=== PATIENT | female | born 1995 | race Hispanic/Latino ===

== ENCOUNTER 2017-10-09 09:11 | Emergency (ER) | payer OTHER ==
[2017-10-09] MEDS ORDERED: Albuterol Sulfate 2.5 mg/0.5 ml Neb ONE ×2 (09:30)
[2017-10-09] MEDS ORDERED: Dexamethasone 10 MG/ML VIAL ONE (09:43)
--- NOTE | 2017-10-09 10:06 | RAD ---
SINGLE VIEW OF THE CHEST: Comparison: None. History: Cough, lightheadedness. FINDINGS: Single view of the chest shows a normal sized cardiomediastinal silhouette. There is no evidence of c onsolidation, mass, or pleural effusion. The bones are unremarkable. IMPRESSION: No evidence of acute cardiopulmonary disease. POS: [facility]
== END 2017-10-09 11:29 | disposition home or self-care (01) ==
LOC: ERS 09:11
DX: J45.901 Unspecified asthma with (acute) exacerbation (principal); J20.9 Acute bronchitis, unspecified; G43.909 Migraine, unspecified, not intractable, without status migrainosus; M10.9 Gout, unspecified; F17.210 Nicotine dependence, cigarettes, uncomplicated
CPT/HCPCS: 71045; 93005; 94644; 96361; 96374; 96375; J0696; J1100; J7611; J7620

== ENCOUNTER 2018-05-12 13:06 | Emergency (ER) | payer OTHER ==
[2018-05-12] MEDS ORDERED: Ondansetron HCl/PF 4 MG/2 ML Vial ONE (14:33)
[2018-05-12] MEDS ORDERED: Lorazepam 2 MG/ML VIAL ONE (15:10)
== END 2018-05-12 16:26 | disposition home or self-care (01) ==
LOC: ERS 13:06
DX: R11.2 Nausea with vomiting, unspecified (principal); J45.909 Unspecified asthma, uncomplicated; M10.9 Gout, unspecified; G43.909 Migraine, unspecified, not intractable, without status migrainosus; F41.9 Anxiety disorder, unspecified; F32.9 Major depressive disorder, single episode, unspecified; Z87.891 Personal history of nicotine dependence; Z79.899 Other long term (current) drug therapy
CPT/HCPCS: 96374; 96375; J2060; J2405

== ENCOUNTER 2018-11-10 22:09 | Emergency (ER) | payer OTHER, SELFPAY ==
[2018-11-10] MEDS ORDERED: Ketorolac Tromethamine 30 MG/ML VIAL ONE (23:32)
== END 2018-11-11 00:16 | disposition home or self-care (01) ==
LOC: ERS 22:09
DX: L52 Erythema nodosum (principal); M10.9 Gout, unspecified; J45.909 Unspecified asthma, uncomplicated; G43.909 Migraine, unspecified, not intractable, without status migrainosus; F41.9 Anxiety disorder, unspecified; F32.9 Major depressive disorder, single episode, unspecified
CPT/HCPCS: 87804; 96372; J1885

== ENCOUNTER 2018-11-13 17:07 | Inpatient (IN) | payer OTHER, SELFPAY ==
[2018-11-13 18:07] LABS: Hemoglobin 13.5 g/dL (12.0-16.0); Mean Corpuscular HGB CONC 32.5 g/dL (32.0-36.0); Mean Corpuscular Hemoglobin 30.3 pg (27.0-31.0); Mean Corpuscular Volume 93.1 fL (78.0-98.0); Mean Platelet Volume 7.5 fL (7.4-10.4); Platelet Count 291 thou/uL (130-400); RBC Distribution Width 11.6 % (11.5-14.5); Red Blood Cell (RBC) Count 4.45 mill/uL (4.20-5.40); White Blood Cell (WBC) Count 26.2 thou/uL (4.8-10.8)
[2018-11-13 18:24] LABS: ALT (SGPT) 33 U/L (8-55); AST (SGOT) 24 U/L (5-34); Albumin 3.9 g/dL (3.5-5.0); Alkaline Phosphatase 95 U/L (40-150); Anion Gap 13 mmol/L (10-20); BUN (Urea Nitrogen) 10 mg/dL (7.0-18.7); Bilirubin, Total 1.1 mg/dL (0.2-1.2); Calc. Creatinine Clearance 0 mL/min (70-130); Calcium 9.3 mg/dL (7.8-10.44); Carbon Dioxide 23 mmol/L (22-29); Chloride 105 mmol/L (98-107); Estimated GFR-MDRD Greater than 90; Globulin 3.5 g/dL (2.4-3.5); Glucose 104 mg/dL (70-105); Potassium 3.5 mmol/L (3.5-5.1); Protein, Total 7.4 g/dL (6.0-8.3); Sodium 137 mmol/L (136-145)
[2018-11-13 18:26] LABS: Band 10 % (5-11); Lymphocytes 31 % (21-51); MDiff Complete? YES; Monocytes 5 % (0-10); Neutrophil 54 % (42-75); Platelet Morphology Comment Appears Adequate
[2018-11-13] MEDS ORDERED: Ibuprofen 800 MG TAB ONE (19:23)
[2018-11-13] MEDS ORDERED: Morphine 4 MG/ML VIAL ONE ×2 (19:23→21:03)
[2018-11-13] MEDS ORDERED: Piperacillin/Tazobactam 4.5 GM in Sodium Chloride 0.9% 100 ML IVPB ONE (19:45)
--- NOTE | 2018-11-13 20:30 | PDOC.FPRHP ---
- History of Present Illness Chief Complaint: Leg pain History of Present Illness: Ms. Hdz presents to the ED with LLE pain since sunday She reports a small amount of redness (3cm) at that time, she came to the ER because it was very painful and hard to walk. She was DCd with naproxen, returns today with increasing redness and pain. She reports fever at home as high as 102, poor PO intake, and inability to ambulate. She denies trauma, history of DMII, GI upset, syncope, seizure, or headache. She has a history of abscess formation on her skin that has been treated with abx and showering with anti-bacterial soap. ED Course: vanc, zosyn, ibuprofen, morphine, 1L NS CBC, CMP, LA - Allergies/Adverse Reactions Allergies Allergy/AdvReac Type Severity Reaction Status Date / Time acetaminophen [From Tylenol] Allergy Severe Verified 11/13/18 22:54 Hives pork derived (porcine) AdvReac Nausea Verified 11/13/18 22:54 - Home Medications Medication Instructions Recorded Confirmed Type Ibuprofen 400 mg PO TID PRN 09/29/15 11/13/18 History Sertraline HCl 50 mg PO DAILY 11/13/18 11/13/18 History - History PMHx:asthma, PCOS, migraines, depression, anxiety PSHx: tonsillectomy FHx: DMII Social: former smoker, social drinker, marijuana use - Review of Systems General: reports: fever/chills, weight/appetite/sleep changes, fatigue Eyes: denies: eye pain, vision changes ENT: denies: nasal congestion Respiratory: denies: cough, congestion Cardiovascular: denies: chest pain, palpitation Gastrointestinal: denies: nausea, vomiting, diarrhea Genitourinary: denies: incontinence, dysuria Skin: reports: rashes. denies: lesions Musculoskeletal: reports: pain, tenderness. denies: stiffness, swelling Neurological: denies: numbness, syncope, seizure, weakness - Vital signs BP: 151/91 HR: 102 RR: 20 Tmax: 101 Pox: 99% on RA Wt: 158kg - Physical Exam Constitutional: NAD, awake, alert and oriented HEENT: grossly normal vision, grossly normal hearing, MMM Neck: supple, trachea midline Chest: no-tender to palpation Heart: RRR, normal S1/S2, no murmurs/rubs/gallops, pulses present, no edema Lungs: CTAB, no respiratory distress Abdomen: soft, non-tender Musculoskeletal: normal structure, normal tone, ROM grossly normal Neurological: no focal deficit Skin: other (pre tibial erythematous area, indurated, no crepitus) Heme/Lymphatic: no unusual bruising or bleeding Psychiatric: normal mood and affect FMR H&P: Results - Labs Result Diagrams: 11/13/18 17:48 11/13/18 17:48 Lab results: WBC 26.2 thou/uL (4.8-10.8) H 11/13/18 17:48 Hgb 13.5 g/dL (12.0-16.0) 11/13/18 17:48 Hct 41.4 % (36.0-47.0) 11/13/18 17:48 MCV 93.1 fL (78.0-98.0) 11/13/18 17:48 Plt Count 291 thou/uL (130-400) 11/13/18 17:48 Band Neuts % (Manual) 10 % (5-11) 11/13/18 17:48 Sodium 137 mmol/L (136-145) 11/13/18 17:48 Potassium 3.5 mmol/L (3.5-5.1) 11/13/18 17:48 Chloride 105 mmol/L (98-107) 11/13/18 17:48 Carbon Dioxide 23 mmol/L (22-29) 11/13/18 17:48 BUN 10 mg/dL (7.0-18.7) 11/13/18 17:48 Creatinine 0.68 mg/dL (0.6-1.1) 11/13/18 17:48 Glucose 104 mg/dL (70-105) 11/13/18 17:48 Lactic Acid 1.0 mmol/L (0.5-2.2) 11/13/18 17:48 Calcium 9.3 mg/dL (7.8-10.44) 11/13/18 17:48 Total Bilirubin 1.1 mg/dL (0.2-1.2) 11/13/18 17:48 AST 24 U/L (5-34) 11/13/18 17:48 ALT 33 U/L (8-55) 11/13/18 17:48 Alkaline Phosphatase 95 U/L (40-150) 11/13/18 17:48 Serum Total Protein 7.4 g/dL (6.0-8.3) 11/13/18 17:48 Albumin 3.9 g/dL (3.5-5.0) 11/13/18 17:48 FMR H&P: A/P - Problem List (1) Sepsis Current Visit: Yes Status: Acute Code(s): A41.9 - SEPSIS, UNSPECIFIED ORGANISM (2) Cellulitis Current Visit: Yes Status: Acute Code(s): L03.90 - CELLULITIS, UNSPECIFIED (3) Leukocytosis Current Visit: Yes Status: Acute Code(s): D72.829 - ELEVATED WHITE BLOOD CELL COUNT, UNSPECIFIED - Plan sepsis 2/2 cellulitis - elevated WBC, febrile, tachycardic, known source - 1L given in ED, additional now, continue vanc, DC zosyn - tramadol prn for pain, morphine for breakthrough - BCx pending - vitals q4hr leukocytosis - see above Migraines - aware, has not had in a while asthma - no recent exacerbations, monitor Depression/anxiety - continue sertraline, hydroxizine prn code: full ppx: lovenox dispo: admit to medical for IV abx and fluid, transition to PO FMR H&P: Upper Level - Pertinent history 23F seen for 3 day of left leg pain. Issue started with a 3 cm diameter rash. She was seen at ER and discharged with naproxen. The rash continued to increase in size. It is associated with pain, home measured temp of 102F, and nausea. She specifically denies trauma. She endorse history of skin abscesses and shaving her leg. In ER, she has received 2 g vanc, 8 mg morphine, 4.5 g zosyn, 800 mg ibuprofen, 1L NS. WBC was found to be elevated at 26, band of 10%. - Pertinent findings Vitals, BP 140/74, Pulse 94, Resp 20, Temp 98.6 (101.1 Tmax), 98% on RA Gen: Alert, oriented HEENT: Normocephalic, vision/hearing grossly intact, moist mucosal membrane CV: RRR without m/g/r Resp: CTA bilat GI: Soft abd, normoactive Ext: Left leg, anterior surface, irregular rash, with no clear demarcation, measuring over 15 x 15 cm in diameter. Area of wound was marked during exam to establish border. - Plan Date/Time: 11/13/182027 1. Sepsis 2/2 Nonpurulent Cellulitis - Will continue IV vanc for now. DC zosyn. Patient pressure been appropriate and tolerating PO so no further fluid - Blood culture pending. - Transition to PO abx tomorrow 2. Depression - Chronic issue. Continue home sertraline. I, [Clif Hugo], have evaluated this patient and agree with findings/plan as outlined by hospital intern resident. Pertinent changes/additions are listed here. Addendum - Attending - Attending Attestation Date/Time: 11/14/18 0151 I personally evaluated the patient and discussed the management with and team on 11/13. I agree with the History, Examination, Assessment and Plan documented above with any addition or exceptions noted below. BCx and antibiotics.
[2018-11-13] MEDS ORDERED: Ondansetron PF 4 MG/2 ML Vial IVP PRN (22:28)
[2018-11-13] MEDS ORDERED: Morphine 4 MG/ML VIAL SLOW IVP PRN (22:28)
[2018-11-13] MEDS ORDERED: Sodium Chloride 0.9% 1,000 ML IV SCH (22:28)
[2018-11-13 22:56] VITALS: BMI 56.8
[2018-11-13] MEDS: hydrOXYzine 25 MG TAB PO SCH (23:54)
[2018-11-13] MEDS: traMADol HCl 50 MG TAB PO PRN (23:55)
[2018-11-14] MEDS ORDERED: Ibuprofen 200 MG TAB PO PRN (01:01)
[2018-11-14] MEDS ORDERED: Piperacillin/Tazobactam 4.5 GM in Sodium Chloride 0.9% 100 ML IVPB SCH (02:00)
[2018-11-14] MEDS: Vancomycin HCl 1.5 GM in Sodium Chloride 0.9% 250 ML 300 ML IVPB SCH ×2 (05:14→13:51)
[2018-11-14] MEDS: hydrOXYzine 25 MG TAB PO SCH ×4 (05:14→23:26)
[2018-11-14] MEDS: traMADol HCl 50 MG TAB PO PRN ×4 (08:15→21:29)
[2018-11-14 08:24] LABS: #Eosinphils 0.3 thou/uL (0.0-0.7); #Lymphocytes 3.6 thou/uL (1.20-3.40); #Monocytes 1.3 thou/uL (0.11-0.59); #Neutrophils 16.1 thou/uL (1.40-6.50); %Basophils 0.1 % (0.0-1.0); %Eosinophils 1.4 % (0.0-10.0); %Lymphocytes 16.9 % (21.0-51.0); %Monocytes 5.9 % (0.0-10.0); %Neutrophils 75.6 % (42.0-75.0); Hemoglobin 12.7 g/dL (12.0-16.0); Mean Corpuscular HGB CONC 32.9 g/dL (32.0-36.0); Mean Corpuscular Hemoglobin 30.3 pg (27.0-31.0); Mean Corpuscular Volume 92.3 fL (78.0-98.0); Mean Platelet Volume 7.4 fL (7.4-10.4); Platelet Count 284 thou/uL (130-400); RBC Distribution Width 11.6 % (11.5-14.5); Red Blood Cell (RBC) Count 4.17 mill/uL (4.20-5.40); White Blood Cell (WBC) Count 21.3 thou/uL (4.8-10.8)
[2018-11-14 08:44] LABS: ALT (SGPT) 27 U/L (8-55); AST (SGOT) 17 U/L (5-34); Albumin 3.6 g/dL (3.5-5.0); Alkaline Phosphatase 89 U/L (40-150); Anion Gap 11 mmol/L (10-20); BUN (Urea Nitrogen) 10 mg/dL (7.0-18.7); Bilirubin, Total 0.9 mg/dL (0.2-1.2); Calc. Creatinine Clearance 329 mL/min (70-130); Calcium 8.7 mg/dL (7.8-10.44); Carbon Dioxide 26 mmol/L (22-29); Chloride 107 mmol/L (98-107); Estimated GFR-MDRD Greater than 90; Globulin 3.4 g/dL (2.4-3.5); Glucose 110 mg/dL (70-105); Potassium 3.6 mmol/L (3.5-5.1); Sodium 140 mmol/L (136-145)
--- NOTE | 2018-11-14 09:19 | PDOC.FM ---
- Subjective Subjective: Pt reports continued subjective fevers, no chills. continued pain in LLE. no cp/sob, no nausea/vomiting - Objective MAR Reviewed: Yes Vital Signs & Weight: Vital Signs (12 hours) Temp Pulse Resp BP Pulse Ox 11/14/18 07:19 98.1 F 99 16 133/76 99 11/14/18 05:18 98.0 F 92 20 143/75 H 95 11/13/18 22:55 98.8 F 88 20 142/74 H 95 Weight Weight 154.873 kg Result Diagrams: 11/14/18 08:10 11/14/18 08:10 Phys Exam - Physical Examination Constitutional: NAD HEENT: moist MMs, sclera anicteric Neck: no JVD, supple Respiratory: no wheezing, clear to auscultation bilateral Cardiovascular: RRR, no significant murmur Gastrointestinal: soft, non-tender Musculoskeletal: no edema, pulses present Neurological: normal sensation, moves all 4 limbs Lymphatic: no nodes Psychiatric: normal affect Skin: no rash Deviation from normal: LLE: erythema retreating and warm to touch (area marked) , moderat TTP Dx/Plan (1) Sepsis Code(s): A41.9 - SEPSIS, UNSPECIFIED ORGANISM Status: Acute (2) Cellulitis Code(s): L03.90 - CELLULITIS, UNSPECIFIED Status: Acute (3) Leukocytosis Code(s): D72.829 - ELEVATED WHITE BLOOD CELL COUNT, UNSPECIFIED Status: Acute - Plan Plan: sepsis 2/2 LLE cellulitis A- elevated WBC, febrile, tachycardic, known source. 1L given in ED on vanc, has received one dose of zosyn P- will switch to PO ABX - tramadol prn for pain, morphine for breakthrough - BCx pending - vitals q4hr leukocytosis - see above Migraines - aware, has not had in a while asthma - no recent exacerbations, monitor Depression/anxiety - continue sertraline, hydroxizine prn code: full ppx: lovenox Addendum - Attending - Attending Attestation Date/Time: 11/14/18 3911 I personally evaluated the patient and discussed the management with Dr. Dickinson. I agree with the History, Examination, Assessment and Plan documented above with any addition or exceptions noted below. Patient here for cellulitis and sepsis that appears to be resolving. She continues to have erythema without induration. Will continue Vanc and await blood cx. Encourage ambulation. Anticipate 2-3 days hospitalization pending clinical course.
[2018-11-14] MEDS: Ondansetron ODT 4 MG TAB PO PRN ×2 (09:39→14:03)
--- NOTE | 2018-11-14 14:10 | PDOC.EVN ---
Event Note - Event Note Event Note: Pt evaluated this afternoon after reports that her erythema has spread. Erythema has expanded roughly 2-4cm beyond borders in some places, and she now has pain on the posterior aspect of her LLE. Patient reports no change in character/intensity of pain since admission. She is able to wiggle her toes without pain. Her pedal pulses are full bilaterally. She continues to be afebrile. S/p two doses of vancomycin at this time. This infection has been present since 11/10 when she was evaluated in the ED. Given the protracted time course, we have a low suspicion for nec fasc currently. We will continue to monitor spreading of erythema and repeat serial examination to assess for compartment syndrome. We will also expand her antibiotic coverage with Zosyn.
[2018-11-14] MEDS: Piperacillin/Tazobactam 3.375 GM in Sodium Chloride 0.9% 100 ML IVPB SCH ×2 (15:37→21:22)
[2018-11-14 21:37] LABS: Vancomycin, Trough 10.6 ug/mL
[2018-11-14] MEDS ORDERED: Vancomycin HCl 1.75 GM in Sodium Chloride 0.9% 500 ML IVPB SCH (22:45)
[2018-11-15] MEDS: Piperacillin/Tazobactam 3.375 GM in Sodium Chloride 0.9% 100 ML IVPB SCH ×4 (02:55→20:33)
[2018-11-15] MEDS: traMADol HCl 50 MG TAB PO PRN (04:07)
[2018-11-15] MEDS: Ondansetron ODT 4 MG TAB PO PRN (04:09)
[2018-11-15] MEDS: hydrOXYzine 25 MG TAB PO SCH ×3 (06:09→17:00)
[2018-11-15] MEDS: Vancomycin HCl 1.75 GM in Sodium Chloride 0.9% 500 ML IVPB SCH ×3 (06:10→21:57)
[2018-11-15 06:36] LABS: #Eosinphils 0.6 thou/uL (0.0-0.7); #Lymphocytes 3.3 thou/uL (1.20-3.40); %Basophils 0.2 % (0.0-1.0); %Eosinophils 3.6 % (0.0-10.0); %Lymphocytes 19.6 % (21.0-51.0); %Monocytes 5.6 % (0.0-10.0); Hemoglobin 11.9 g/dL (12.0-16.0); Mean Corpuscular HGB CONC 33.2 g/dL (32.0-36.0); Mean Corpuscular Hemoglobin 31.1 pg (27.0-31.0); Mean Corpuscular Volume 93.5 fL (78.0-98.0); Mean Platelet Volume 7.5 fL (7.4-10.4); Platelet Count 268 thou/uL (130-400); RBC Distribution Width 11.4 % (11.5-14.5); Red Blood Cell (RBC) Count 3.85 mill/uL (4.20-5.40)
--- NOTE | 2018-11-15 08:47 | PDOC.FM ---
- Subjective Subjective: Pt has no changes subjectively from yesterday. Continued subjective fevers, continued LLE pain. Pt feels the redness has spread. no cp/palpitations, no nausea/vomiting - Objective MAR Reviewed: Yes Vital Signs & Weight: Vital Signs (12 hours) Temp Pulse Resp BP Pulse Ox 11/15/18 07:26 98.1 F 91 18 147/76 H 97 11/15/18 05:00 98.5 F 89 18 138/77 99 11/15/18 04:00 98.1 F 11/15/18 01:24 97.9 F 11/14/18 23:35 97.9 F Weight Weight 154.873 kg Result Diagrams: 11/15/18 06:06 11/14/18 08:10 Phys Exam - Physical Examination Constitutional: NAD HEENT: moist MMs, sclera anicteric Neck: no nodes, supple Respiratory: no wheezing, clear to auscultation bilateral Cardiovascular: RRR, no significant murmur Gastrointestinal: soft, non-tender Musculoskeletal: pulses present LLE edema, non pitting Neurological: non-focal, normal sensation Lymphatic: no nodes Psychiatric: normal affect, A&O x 3 Deviation from normal: LLE: erythema and TTP which has spread 2cm past previous marked border Dx/Plan (1) Sepsis Code(s): A41.9 - SEPSIS, UNSPECIFIED ORGANISM Status: Acute (2) Cellulitis Code(s): L03.90 - CELLULITIS, UNSPECIFIED Status: Acute (3) Leukocytosis Code(s): D72.829 - ELEVATED WHITE BLOOD CELL COUNT, UNSPECIFIED Status: Acute - Plan Plan: sepsis 2/2 LLE cellulitis vs. LLE anterior compartment syndrome A- WBC trending down but erythema is spreading despite several doses of vanc and zosyn. Necrotizing fasciitis unlikely as of now as pt has such al long course of symptoms though she does have some pain with mvmt of toes and foot dorsiflexion. P- Continue Vanc/Zosyn - will consider gen surg consult for possible nec fasc vs. compartment syndrome - CRP - will add norco for pain - BCx pending - vitals q4hr leukocytosis - see above Migraines - aware, has not had in a while asthma - no recent exacerbations, monitor Depression/anxiety - continue sertraline, hydroxizine prn code: full ppx: lovenox Addendum - Attending - Attending Attestation Date/Time: 11/15/18 1037 I personally evaluated the patient and discussed the management with Dr. Dickinson. I agree with the History, Examination, Assessment and Plan documented above with any addition or exceptions noted below. Patient here with sepsis 2/2 LLE cellulitis. She has been afebrile and cultures negative so far. Continue fluids and abx and await final cx. Her areas of erythema have extended somewhat on the LLE and pain continues to be the same. Will change pain control to Dierks. Expand abx to include Clinda for staph/strep toxin binding. Will obtain CT/MRI of the LLE to see if there is developing fluid collection or abscess or other complication leading to slowed improvement. Further mgmt per those results.
[2018-11-15] MEDS ORDERED: Morphine 4 MG/ML VIAL SLOW IVP PRN ×2 (08:55→14:34)
[2018-11-15] MEDS: Ibuprofen 200 MG TAB PO SCH ×3 (10:51→20:34)
[2018-11-15] MEDS: Clindamycin/D5W 600 MG in Premix Bag 1 BAG IVPB SCH ×2 (13:33→21:26)
[2018-11-15] MEDS ORDERED: ISOVUE-370 76%-LOCM 1 ML ONE (13:39)
--- NOTE | 2018-11-15 13:39 | CT ---
CT OF THE LEFT LOWER EXTREMITY WITH CONTRAST: INDICATION: Concern for possible soft tissue abscess or necrotizing fasciitis with ____ cellulitis. COMPARISON: None. FINDINGS: There is reticulation and soft tissue swelling over the left lower leg, ankle, and dorsal foot. No d rainable fluid collection is evident. No definite acute osseous abnormality is noted. There are sma ll suspected phleboliths within the anterior soft tissues of the proximal to mid left foreleg. The intrinsic musculature of the left lower leg appear within normal limits. IMPRESSION: Prominent cellulitis of the left foreleg, ankle, and foot without evidence of a drainable fluid colle ction. POS: [facility]
[2018-11-15] MEDS ORDERED: Morphine 2 MG/ML SYRINGE SLOW IVP PRN (14:33)
[2018-11-15] MEDS: Morphine 4 MG/ML VIAL SLOW IVP PRN (20:35)
[2018-11-15 21:36] LABS: Vancomycin, Trough 16.2 ug/mL
[2018-11-16] MEDS: Vancomycin HCl 1.5 GM in Sodium Chloride 0.9% 250 ML 300 ML IVPB SCH (00:11)
[2018-11-16] MEDS: hydrOXYzine 25 MG TAB PO SCH ×5 (00:30→20:21)
[2018-11-16] MEDS: Morphine 4 MG/ML VIAL SLOW IVP PRN ×4 (00:33→20:17)
[2018-11-16] MEDS: Piperacillin/Tazobactam 3.375 GM in Sodium Chloride 0.9% 100 ML IVPB SCH ×2 (02:39→07:58)
[2018-11-16] MEDS: Clindamycin/D5W 600 MG in Premix Bag 1 BAG IVPB SCH ×3 (05:05→21:30)
[2018-11-16] MEDS: Vancomycin HCl 1.75 GM in Sodium Chloride 0.9% 500 ML IVPB SCH ×2 (05:05→22:07)
--- NOTE | 2018-11-16 07:57 | PDOC.FM ---
- Subjective Subjective: pt feeling well, continued subjective fevers, no chills, continued LLE pain and erythema. no nausea/vomiting, no sob/cough - Objective MAR Reviewed: Yes Vital Signs & Weight: Vital Signs (12 hours) Temp Pulse Resp BP BP Pulse Ox 11/16/18 07:50 97.7 F 76 16 115/75 98 11/16/18 05:00 98.5 F 76 20 158/74 H 11/15/18 21:00 99.0 F 74 20 154/82 H 98 Weight Weight 154.873 kg Result Diagrams: 11/16/18 07:14 11/14/18 08:10 Phys Exam - Physical Examination Constitutional: NAD HEENT: moist MMs, sclera anicteric Neck: no JVD, supple Respiratory: no wheezing, clear to auscultation bilateral Cardiovascular: RRR, no significant murmur Gastrointestinal: soft, non-tender Musculoskeletal: pulses present LLE edema Neurological: non-focal, normal sensation Lymphatic: no nodes Psychiatric: normal affect, A&O x 3 Skin: normal turgor Deviation from normal: improved: LLE edema/erythema with reduced margins. TTP Dx/Plan (1) Sepsis Code(s): A41.9 - SEPSIS, UNSPECIFIED ORGANISM Status: Acute (2) Cellulitis Code(s): L03.90 - CELLULITIS, UNSPECIFIED Status: Acute (3) Leukocytosis Code(s): D72.829 - ELEVATED WHITE BLOOD CELL COUNT, UNSPECIFIED Status: Acute - Plan Plan: sepsis 2/2 LLE cellulitis A- erythema was spreading despite several doses of vanc and zosyn, added clindamycin yesterday and margins are now retreating Necrotizing fasciitis unlikely as of now as pt has such al long course of symptoms though she does have some pain with mvmt of toes and foot dorsiflexion. BCx no growth 48hrs P- Continue Vanc/Zosyn/clinda - morphine pain controll - vitals q4hr leukocytosis - see above Migraines - aware, has not had in a while asthma - no recent exacerbations, monitor Depression/anxiety - continue sertraline, hydroxizine prn code: full ppx: lovenox Addendum - Attending - Attending Attestation Date/Time: 11/16/18 1230 I personally evaluated the patient and discussed the management with Dr. Dickinson I agree with the History, Examination, Assessment and Plan documented above with any addition or exceptions noted below. LLE cellulitis- improving with addition of clindamycin. Will d/c zosyn and vanc and serially examine leg. Expect 1-2 more days of IV abx. Work on pain control.
[2018-11-16] MEDS: Ibuprofen 200 MG TAB PO SCH ×3 (07:59→20:16)
[2018-11-16 08:08] LABS: #Eosinphils 0.6 thou/uL (0.0-0.7); #Lymphocytes 2.9 thou/uL (1.20-3.40); #Monocytes 0.8 thou/uL (0.11-0.59); #Neutrophils 9.4 thou/uL (1.40-6.50); %Basophils 0.4 % (0.0-1.0); %Eosinophils 4.6 % (0.0-10.0); %Monocytes 5.8 % (0.0-10.0); %Neutrophils 68.3 % (42.0-75.0); Hemoglobin 11.7 g/dL (12.0-16.0); Mean Corpuscular HGB CONC 33.9 g/dL (32.0-36.0); Mean Corpuscular Hemoglobin 31.1 pg (27.0-31.0); Mean Corpuscular Volume 91.7 fL (78.0-98.0); Mean Platelet Volume 7.7 fL (7.4-10.4); Platelet Count 296 thou/uL (130-400); RBC Distribution Width 11.4 % (11.5-14.5); Red Blood Cell (RBC) Count 3.77 mill/uL (4.20-5.40); White Blood Cell (WBC) Count 13.7 thou/uL (4.8-10.8)
[2018-11-16] MEDS ORDERED: Morphine 2 MG/ML SYRINGE SLOW IVP PRN ×2 (10:37→19:50)
[2018-11-16] MEDS ORDERED: Morphine 4 MG/ML VIAL SLOW IVP PRN (10:37)
[2018-11-16] MEDS ORDERED: Enoxaparin Sodium 40 MG/0.4 ML SYRINGE SC SCH (10:45)
[2018-11-16] MEDS: traMADol HCl 50 MG TAB PO PRN (13:57)
[2018-11-16] MEDS ORDERED: Piperacillin/Tazobactam 3.375 GM in Sodium Chloride 0.9% 100 ML IVPB SCH ×2 (22:00→23:59)
[2018-11-17] MEDS: Morphine 4 MG/ML VIAL SLOW IVP PRN ×6 (00:08→21:33)
[2018-11-17] MEDS: hydrOXYzine 25 MG TAB PO SCH ×4 (01:00→13:35)
[2018-11-17] MEDS: Clindamycin/D5W 600 MG in Premix Bag 1 BAG IVPB SCH ×3 (05:33→21:25)
[2018-11-17] MEDS: Vancomycin HCl 1.75 GM in Sodium Chloride 0.9% 500 ML IVPB SCH ×2 (05:33→11:42)
--- NOTE | 2018-11-17 06:49 | PDOC.FM ---
- Subjective Subjective: Pt complains of continued subjective fevers/chills and LLE pain. Reports ok rest. no other complaints at this time. - Objective MAR Reviewed: Yes Vital Signs & Weight: Vital Signs (12 hours) Temp Pulse Resp BP Pulse Ox 11/17/18 05:00 97.9 F 76 18 122/76 97 11/16/18 21:00 98.2 F 84 18 185/88 H 98 Weight Weight 154.873 kg Result Diagrams: 11/16/18 07:14 11/14/18 08:10 Phys Exam - Physical Examination Constitutional: NAD HEENT: moist MMs, sclera anicteric Neck: no JVD, supple Respiratory: no wheezing, clear to auscultation bilateral Cardiovascular: RRR, no significant murmur Gastrointestinal: soft, non-tender Musculoskeletal: pulses present LLE edema Neurological: normal sensation, moves all 4 limbs Lymphatic: no nodes Psychiatric: normal affect, A&O x 3 Skin: normal turgor Deviation from normal: LLE: advanced erythema past the margins, TTP Dx/Plan (1) Sepsis Code(s): A41.9 - SEPSIS, UNSPECIFIED ORGANISM Status: Acute (2) Cellulitis Code(s): L03.90 - CELLULITIS, UNSPECIFIED Status: Acute (3) Leukocytosis Code(s): D72.829 - ELEVATED WHITE BLOOD CELL COUNT, UNSPECIFIED Status: Acute - Plan Plan: sepsis 2/2 LLE cellulitis A- Erythema retreated with addition of clinda but yesterday erythema advanced after DCing vanc and zosyn. Necrotizing fasciitis unlikely as of now as pt has such al long course of symptoms though she does have some pain with mvmt of toes and foot dorsiflexion. BCx no growth 48hrs P- Continue Vanc/Zosyn/clinda for now. Will discuss plan going forward at rounds. - morphine pain control - vitals q4hr leukocytosis - see above Migraines - aware, has not had in a while asthma - no recent exacerbations, monitor Depression/anxiety - continue sertraline, hydroxizine prn code: full ppx: lovenox Addendum - Attending - Attending Attestation Date/Time: 11/17/18 1050 I personally evaluated the patient and discussed the management with Dr. Dickinson I agree with the History, Examination, Assessment and Plan documented above with any addition or exceptions noted below. This am wound appears similar to yesterday, but did progress past borders overnight so vanc/zosyn restarted. Today will continue vanc/zosyn/clinda. Attempt wean tomorrow if continued improvement.
[2018-11-17] MEDS: Lactinex Tablet PO SCH (08:16)
[2018-11-17] MEDS: Enoxaparin Sodium 40 MG/0.4 ML SYRINGE SC SCH (08:16)
[2018-11-17] MEDS: Piperacillin/Tazobactam 3.375 GM in Sodium Chloride 0.9% 100 ML IVPB SCH ×3 (08:16→20:13)
[2018-11-17] MEDS: Ibuprofen 200 MG TAB PO SCH ×3 (08:16→21:31)
[2018-11-17] MEDS: traMADol HCl 50 MG TAB PO PRN (20:11)
[2018-11-17 21:37] LABS: Vancomycin, Trough 23.8 ug/mL
[2018-11-18] MEDS: hydrOXYzine 25 MG TAB PO SCH ×4 (00:06→17:49)
[2018-11-18] MEDS: Piperacillin/Tazobactam 3.375 GM in Sodium Chloride 0.9% 100 ML IVPB SCH ×4 (01:58→20:10)
[2018-11-18] MEDS: Morphine 4 MG/ML VIAL SLOW IVP PRN ×3 (02:02→10:09)
[2018-11-18] MEDS: Clindamycin/D5W 600 MG in Premix Bag 1 BAG IVPB SCH ×3 (05:29→20:38)
[2018-11-18] MEDS: Vancomycin HCl 1.75 GM in Sodium Chloride 0.9% 500 ML IVPB SCH (07:46)
[2018-11-18] MEDS: Enoxaparin Sodium 40 MG/0.4 ML SYRINGE SC SCH (08:25)
[2018-11-18] MEDS: Ibuprofen 200 MG TAB PO SCH ×3 (08:25→20:09)
[2018-11-18] MEDS: Lactinex Tablet PO SCH (08:25)
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
[2018-11-18] MEDS: traMADol HCl 50 MG TAB PO PRN ×2 (14:25→20:36)
--- NOTE | 2018-11-18 16:27 | ULT ---
SOFT TISSUE ULTRASOUND OF LEFT LOWER EXTREMITY: INDICATIONS: The patient has cellulitis of the left lower extremity with swelling and redness. Ultrasound is requ ested to assess for abscess or fluid collection. FINDINGS: The left lower extremity, below the knee, is evaluated anteriorly. There is significant subcutaneous edema, consistent with the history of cellulitis. There is a small, hypoechoic focus seen in the an terior alarcon region, which measures approximately 0.8 x 2.5 cm. This could represent a focal area of fluid or abscess, although it is too small for drainage at this time. Recommend continued ultrasound followup to assess for resolution. IMPRESSION: 1. Severe subcutaneous edema, consistent with a history of cellulitis and swelling. 2. There is a small, hypoechoic area, which is very nonspecific in appearance. It may represent [place] ma within the planes of the soft tissues, although a small focal fluid or abscess collection is not e xcluded. It is too small for drainage at this time. Suggest continued ultrasound followup. POS: [facility]
[2018-11-19] MEDS: hydrOXYzine 25 MG TAB PO SCH ×4 (00:05→17:50)
[2018-11-19] MEDS: Piperacillin/Tazobactam 3.375 GM in Sodium Chloride 0.9% 100 ML IVPB SCH ×4 (02:25→20:36)
[2018-11-19] MEDS: traMADol HCl 50 MG TAB PO PRN ×3 (02:26→17:50)
[2018-11-19] MEDS: Clindamycin/D5W 600 MG in Premix Bag 1 BAG IVPB SCH ×3 (05:26→21:42)
[2018-11-19] MEDS: Ondansetron ODT 4 MG TAB PO PRN (06:17)
[2018-11-19] MEDS: Lactinex Tablet PO SCH (08:19)
[2018-11-19] MEDS: Ibuprofen 200 MG TAB PO SCH ×3 (08:20→20:37)
[2018-11-19] MEDS ORDERED: HYDROcodone/Acetaminophen 5/325 mg Tablet PO PRN (08:22)
--- NOTE | 2018-11-19 08:26 | PDOC.FM ---
- Subjective Subjective: Ms. Hdz is resting comfortably in bed, she reports the pain is much worse without morphine, ambulating ok. tolerating PO. - Objective Vital Signs & Weight: Vital Signs (12 hours) Temp Pulse Resp BP Pulse Ox 11/19/18 07:16 97.9 F 66 20 112/70 98 11/19/18 04:00 97.8 F 70 18 124/81 95 Weight Weight 154.873 kg I&O: 11/18/18 11/19/18 11/20/18 06:59 06:59 06:59 Intake Total 1000 Balance 1000 Result Diagrams: 11/19/18 14:01 11/14/18 08:10 Phys Exam - Physical Examination Constitutional: NAD HEENT: moist MMs Neck: no nodes Gastrointestinal: no distention Musculoskeletal: no edema Neurological: moves all 4 limbs Psychiatric: normal affect Skin: normal turgor Deviation from normal: marigins of erythema reduced from previous exams Dx/Plan (1) Sepsis Code(s): A41.9 - SEPSIS, UNSPECIFIED ORGANISM Status: Acute (2) Cellulitis Code(s): L03.90 - CELLULITIS, UNSPECIFIED Status: Acute (3) Leukocytosis Code(s): D72.829 - ELEVATED WHITE BLOOD CELL COUNT, UNSPECIFIED Status: Acute - Plan Plan: sepsis 2/2 LLE cellulitis - Erythema retreated with addition of clinda but yesterday erythema advanced after DCing vanc and zosyn. Necrotizing fasciitis unlikely as of now as pt has such al long course of symptoms though she does have some pain with mvmt of toes and foot dorsiflexion. BCx no growth 48hrs - Consider de-escalating Vanc/Zosyn/clinda, to PO clinda - US reveals fluid pocket, but no drainable abscess - [place] prn and scheduled ibuprofen - vitals q4hr leukocytosis - see above Migraines - aware, has not had in a while asthma - no recent exacerbations, monitor Depression/anxiety - continue sertraline, hydroxizine prn code: full ppx: lovenox Dispo: de-escalate abx therapy, continue to monitor for improvement. Addendum - Attending - Attending Attestation Date/Time: 11/19/18 0842 I personally evaluated the patient and discussed the management with Dr. Neal I agree with the History, Examination, Assessment and Plan documented above with any addition or exceptions noted below. WBC improving however clinically erythema has extended outside marking Rec further consideration MRI of extremity and ID consultation. US report noted small area of fluid collection will follow no an ideal area for I&D with limited vascular supply to this anatomical region. Would not de-escalate antibiotic at this time.
[2018-11-19] MEDS: Enoxaparin Sodium 40 MG/0.4 ML SYRINGE SC SCH (08:38)
[2018-11-19] MEDS: HYDROcodone/Acetaminophen 5/325 mg Tablet PO PRN ×2 (13:30→21:41)
[2018-11-19] MEDS ORDERED: Gadobenate Dimeglumine 529 MG/1 ML (20ML VIAL) ONE (13:50)
[2018-11-19 14:36] LABS: #Eosinphils 0.6 thou/uL (0.0-0.7); #Lymphocytes 3.5 thou/uL (1.20-3.40); #Monocytes 0.6 thou/uL (0.11-0.59); #Neutrophils 9.2 thou/uL (1.40-6.50); %Basophils 0.3 % (0.0-1.0); %Eosinophils 4.4 % (0.0-10.0); %Lymphocytes 25.1 % (21.0-51.0); %Monocytes 4.4 % (0.0-10.0); %Neutrophils 65.8 % (42.0-75.0); Hemoglobin 12.3 g/dL (12.0-16.0); Mean Corpuscular HGB CONC 34.3 g/dL (32.0-36.0); Mean Corpuscular Volume 90.6 fL (78.0-98.0); Mean Platelet Volume 7.3 fL (7.4-10.4); Platelet Count 330 thou/uL (130-400); RBC Distribution Width 11.3 % (11.5-14.5); Red Blood Cell (RBC) Count 3.96 mill/uL (4.20-5.40)
--- NOTE | 2018-11-19 16:54 | MRI ---
LEFT LOWER EXTREMITY MRI WITH AND WITHOUT IV CONTRAST: 11/19/18 HISTORY: Redness, swelling and pain, cellulitis. Concern for abscess or foreign body. There is diffuse skin thickening and subcutaneous fat stranding, somewhat more prominent medially and posteriorly. There is some minimal superficial fascial fluid. No evidence for deep intramuscular abs cess or abnormal fluid collection. No evidence for myonecrosis. There is normal marrow signal within the tibia and fibula. No evidence for osteomyelitis. No evidence for an overt foreign body, although there was no specific focal area marked for particular area of clinical concern. There is some fluid within the flexor hallucis longus tendon sheath which certainly could be consistent with some minimal nonspecific tenosynovitis. The visualized flexor, extensor, and peroneus tendons appear intact. The Achilles tendon appears intact. IMPRESSION: Extensive diffuse skin thickening and subcutaneous fat stranding, nonspecific, but this certainly cou ld be consistent with cellulitis with some possible mild associated superficial fascitis but no evide nce for deep intramuscular abscess or deep fasciitis. No osteomyelitis. No evidence for overt foreign body. There is some fluid within the flexor hallucis longus tendon sheath. POS: TPC
[2018-11-19 21:27] LABS: Vancomycin, Trough 13.8 ug/mL
[2018-11-20] MEDS: Piperacillin/Tazobactam 3.375 GM in Sodium Chloride 0.9% 100 ML IVPB SCH ×2 (02:24→08:55)
[2018-11-20] MEDS: hydrOXYzine 25 MG TAB PO SCH ×5 (05:11→23:48)
[2018-11-20] MEDS: HYDROcodone/Acetaminophen 5/325 mg Tablet PO PRN ×3 (05:11→17:44)
[2018-11-20] MEDS: Clindamycin/D5W 600 MG in Premix Bag 1 BAG IVPB SCH (05:11)
[2018-11-20 05:13] LABS: #Eosinphils 0.7 thou/uL (0.0-0.7); #Lymphocytes 2.5 thou/uL (1.20-3.40); #Monocytes 0.8 thou/uL (0.11-0.59); #Neutrophils 8.4 thou/uL (1.40-6.50); %Basophils 0.4 % (0.0-1.0); %Eosinophils 5.9 % (0.0-10.0); %Monocytes 6.1 % (0.0-10.0); %Neutrophils 67.7 % (42.0-75.0); Hemoglobin 11.6 g/dL (12.0-16.0); Mean Corpuscular HGB CONC 34.1 g/dL (32.0-36.0); Mean Corpuscular Hemoglobin 31.3 pg (27.0-31.0); Mean Corpuscular Volume 91.8 fL (78.0-98.0); Mean Platelet Volume 7.3 fL (7.4-10.4); Platelet Count 291 thou/uL (130-400); RBC Distribution Width 11.3 % (11.5-14.5); White Blood Cell (WBC) Count 12.3 thou/uL (4.8-10.8)
--- NOTE | 2018-11-20 06:38 | PDOC.FM ---
- Subjective Subjective: pt resting comfortably in bed, reports pain somewhat improved. ambulating well - Objective Vital Signs & Weight: Vital Signs (12 hours) Temp Pulse Resp BP Pulse Ox 11/19/18 19:22 97.9 F 67 19 107/69 96 Weight Admit Weight 154.873 kg Weight 154.873 kg I&O: 11/18/18 11/19/18 11/20/18 06:59 06:59 06:59 Intake Total 1000 Balance 1000 Result Diagrams: 11/20/18 04:29 11/14/18 08:10 Phys Exam - Physical Examination Constitutional: NAD HEENT: moist MMs Neck: no nodes Gastrointestinal: no distention Musculoskeletal: pulses present Neurological: moves all 4 limbs Lymphatic: no nodes Psychiatric: normal affect Deviation from normal: erythema margins reduced Dx/Plan (1) Sepsis Code(s): A41.9 - SEPSIS, UNSPECIFIED ORGANISM Status: Acute (2) Cellulitis Code(s): L03.90 - CELLULITIS, UNSPECIFIED Status: Acute (3) Leukocytosis Code(s): D72.829 - ELEVATED WHITE BLOOD CELL COUNT, UNSPECIFIED Status: Acute - Plan Plan: sepsis 2/2 LLE cellulitis - Erythema retreated with addition of clinda as erythema advanced after DCing vanc and zosyn. Necrotizing fasciitis unlikely as of now as pt has such al long course of symptoms though she does have some pain with mvmt of toes and foot dorsiflexion. BCx no growth 48hrs - Consider de-escalating Vanc/Zosyn/clinda, to PO clinda - US reveals fluid pocket, but no drainable abscess - MRI reveals defined cellulitis, possible fluid collection and fasciitis - [place] prn and scheduled ibuprofen - vitals q4hr leukocytosis - see above Migraines - aware, has not had in a while asthma - no recent exacerbations, monitor Depression/anxiety - continue sertraline, hydroxizine prn code: full ppx: lovenox Dispo: de-escalate abx therapy, continue to monitor for improvement. Addendum - Attending - Attending Attestation Date/Time: 11/20/182007 I personally evaluated the patient and discussed the management with Dr. Neal I agree with the History, Examination, Assessment and Plan documented above with any addition or exceptions noted below.improvement erythema currently appear related to stasis dermatitis and chronic venous hypertension s/p trauma rec compression garment and home soon consult Orthopedics for opinion any further recommendation regard MRI study.
[2018-11-20] MEDS: Ondansetron ODT 4 MG TAB PO PRN ×2 (08:54→20:53)
[2018-11-20] MEDS: Enoxaparin Sodium 40 MG/0.4 ML SYRINGE SC SCH (08:55)
[2018-11-20] MEDS: Lactinex Tablet PO SCH (08:55)
[2018-11-20] MEDS: Ibuprofen 200 MG TAB PO SCH ×3 (08:56→20:49)
[2018-11-20] MEDS ORDERED: Clindamycin 150 MG CAP PO SCH ×2 (12:00→21:00)
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
[2018-11-20] MEDS ORDERED: HYDROcodone/Acetaminophen 5/325 mg Tablet PO SCH (21:30)
[2018-11-20] MEDS ORDERED: Calcium Carbonate 500 MG ChewTAB PO PRN (21:55)
[2018-11-20] MEDS ORDERED: Calcium Carbonate 500 MG ChewTAB PO SCH (22:00)
--- NOTE | 2018-11-20 22:03 | PDOC.EVN ---
Event Note - Event Note Event Note: S: Residents called to because pt has new onset CP. Pt was seen and evaluated in person reporting burning substernal CP. Pt says it is just like the pain when she eats "20 chile peppers" at home but worse. EKG was done and then pt reported complete resolution of the pain after burping a large amount of air. No diaphoresis, no radiation, no other transforming factors. O: EKG normal sinus rhythm Vitals wnl GEN: no acute distress CARD: RRR no murmurs, no reproducible pain PULM: CTAB, no wheeze GI: normal bowel sounds, no TTP A/P: Likely acid reflux as pt has been taking NSAIDS and pt reports similar pain with hx of GERD. -f/u troponins/BMP -tums prn -start famotidine daily
[2018-11-20 22:15] LABS: Anion Gap 12 mmol/L (10-20); BUN (Urea Nitrogen) 6 mg/dL (7.0-18.7); CK (CPK) 41 U/L (29-168); Calc. Creatinine Clearance 278 mL/min (70-130); Calcium 9.3 mg/dL (7.8-10.44); Carbon Dioxide 26 mmol/L (22-29); Chloride 107 mmol/L (98-107); Estimated GFR-MDRD Greater than 90; Glucose 88 mg/dL (70-105); Potassium 3.9 mmol/L (3.5-5.1); Sodium 141 mmol/L (136-145)
[2018-11-20] MEDS ORDERED: Famotidine 20 MG TAB PO SCH (22:30)
[2018-11-21] MEDS: Clindamycin 150 MG CAP PO SCH ×4 (00:37→12:36)
[2018-11-21] MEDS: hydrOXYzine 25 MG TAB PO SCH ×2 (05:44→12:36)
[2018-11-21] MEDS: HYDROcodone/Acetaminophen 5/325 mg Tablet PO PRN ×2 (05:45→12:35)
--- NOTE | 2018-11-21 06:54 | PDOC.FM ---
- Subjective Subjective: pt reports decreased pain and redness today, tolerating PO and ambulating - Objective Vital Signs & Weight: Vital Signs (12 hours) Temp Pulse Resp BP Pulse Ox 11/20/18 23:49 97.9 F 63 20 112/75 97 11/20/18 20:00 97.8 F 75 20 115/74 99 Weight Admit Weight 154.873 kg Weight 154.873 kg I&O: 11/19/18 11/20/18 11/21/18 06:59 06:59 06:59 Intake Total 960 Balance 960 Result Diagrams: 11/20/18 04:29 11/20/18 21:43 Phys Exam - Physical Examination Constitutional: NAD HEENT: moist MMs Neck: no nodes Gastrointestinal: no distention Musculoskeletal: no edema, pulses present Neurological: non-focal Lymphatic: no nodes Psychiatric: normal affect Deviation from normal: erythema margins reduced Dx/Plan (1) Sepsis Code(s): A41.9 - SEPSIS, UNSPECIFIED ORGANISM Status: Acute (2) Cellulitis Code(s): L03.90 - CELLULITIS, UNSPECIFIED Status: Acute (3) Leukocytosis Code(s): D72.829 - ELEVATED WHITE BLOOD CELL COUNT, UNSPECIFIED Status: Acute - Plan Plan: sepsis 2/2 LLE cellulitis - Erythema retreated with addition of clinda as erythema advanced after DCing vanc and zosyn. Necrotizing fasciitis unlikely as of now as pt has such al long course of symptoms though she does have some pain with mvmt of toes and foot dorsiflexion. BCx no growth 48hrs - de-escalated Vanc/Zosyn/clinda, to PO clinda - US reveals fluid pocket, but no drainable abscess - MRI reveals defined cellulitis, possible fluid collection and fasciitis - Ortho consulted, no surgical intervention at this time - [place] prn and scheduled ibuprofen - vitals q4hr leukocytosis - see above Migraines - aware, has not had in a while asthma - no recent exacerbations, monitor Depression/anxiety - continue sertraline, hydroxizine prn code: full ppx: lovenox Dispo: DC home today Addendum - Attending - Attending Attestation Date/Time: 11/21/18 1102 I personally evaluated the patient and discussed the management with Dr. Neal I agree with the History, Examination, Assessment and Plan documented above with any addition or exceptions noted below. Patient stable for dismissal today f/u with [facility] before releasing to return to work. 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 The benefit of this was discussed with patient she has no arterial vascular compromise and this seems prudent.
[2018-11-21] MEDS ORDERED: Famotidine 20 MG TAB PO SCH (09:00)
[2018-11-21] MEDS: Enoxaparin Sodium 40 MG/0.4 ML SYRINGE SC SCH (09:08)
[2018-11-21] MEDS: Ibuprofen 200 MG TAB PO SCH (09:08)
[2018-11-21] MEDS: Lactinex Tablet PO SCH (09:09)
[2018-11-21 12:15] VITALS: BP 136/76; TEMP 97.3
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
== END 2018-11-21 12:56 | disposition home or self-care (01) | DRG 872 ==
LOC: ERS 17:07 → T4-A 20:30
PROVIDERS: ADMIT Emergency Medicine; ATTEND Emergency Medicine
DX: A41.9 Sepsis, unspecified organism (principal); L03.116 Cellulitis of left lower limb; J45.909 Unspecified asthma, uncomplicated; F32.9 Major depressive disorder, single episode, unspecified; F41.9 Anxiety disorder, unspecified; G43.909 Migraine, unspecified, not intractable, without status migrainosus
CPT/HCPCS: 36415; 76882; 80048; 80053; 80202; 82550; 83605; 84484; 85025; 86140; 87040; 90471; 90686; 90732; 93005; 93010; 96361; 96365; 96367; 96375; 96376; A9577; G0008; G0009; J1650; J2270; J2543; J3370; J3490; J7050; Q0162; Q9966

== ENCOUNTER 2018-11-23 02:14 | Inpatient (IN) | payer SELFPAY ==
[2018-11-23 03:24] LABS: #Basophils 0.1 thou/uL (0.0-0.2); #Eosinphils 0.8 thou/uL (0.0-0.7); #Lymphocytes 4.9 thou/uL (1.20-3.40); #Monocytes 0.7 thou/uL (0.11-0.59); #Neutrophils 8.6 thou/uL (1.40-6.50); %Basophils 0.3 % (0.0-1.0); %Eosinophils 5.1 % (0.0-10.0); %Lymphocytes 32.8 % (21.0-51.0); %Monocytes 4.6 % (0.0-10.0); %Neutrophils 57.2 % (42.0-75.0); Hemoglobin 13.2 g/dL (12.0-16.0); Mean Corpuscular HGB CONC 33.4 g/dL (32.0-36.0); Mean Corpuscular Hemoglobin 30.4 pg (27.0-31.0); Mean Platelet Volume 7.2 fL (7.4-10.4); Platelet Count 343 thou/uL (130-400); RBC Distribution Width 11.6 % (11.5-14.5); Red Blood Cell (RBC) Count 4.35 mill/uL (4.20-5.40)
[2018-11-23 03:52] LABS: ALT (SGPT) 43 U/L (8-55); AST (SGOT) 35 U/L (5-34); Albumin 4.1 g/dL (3.5-5.0); Alkaline Phosphatase 84 U/L (40-150); Anion Gap 14 mmol/L (10-20); BUN (Urea Nitrogen) 8 mg/dL (7.0-18.7); Bilirubin, Total 0.3 mg/dL (0.2-1.2); Calc. Creatinine Clearance 0 mL/min (70-130); Calcium 9.8 mg/dL (7.8-10.44); Carbon Dioxide 26 mmol/L (22-29); Chloride 107 mmol/L (98-107); Estimated GFR-MDRD Greater than 90; Glucose 94 mg/dL (70-105); Potassium 3.9 mmol/L (3.5-5.1); Protein, Total 8.1 g/dL (6.0-8.3); Sodium 143 mmol/L (136-145)
[2018-11-23] MEDS ORDERED: hydrOXYzine 25 MG TAB PO SCH ×2 (04:15→10:30)
[2018-11-23] MEDS ORDERED: Piperacillin/Tazobactam 3.375 GM VIAL ONE (04:19)
[2018-11-23] MEDS ORDERED: Sodium Chloride 0.9% 100 ML ONE (04:19)
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
[2018-11-23 05:07] LABS: Bilirubin Negative (Negative); Blood, Urine Negative (Negative); Clarity CLEAR (Clear); Glucose, Urine (Dipstick) Negative (Negative); Leukocyte Negative (Negative); Nitrite Negative (Negative); Protein, Urine (Dipstick) Negative (Neg-Trace); Specific Gravity, Urine 1.007 (1.002-1.036); Urobilinogen 0.2 mg/dL (0.2-1.0); pH, Urine 6.5 (5.0-9.0)
[2018-11-23 05:09] LABS: Pregnancy Test - Urine (BHCG) Negative (Negative); Pregu Control Background? CLEAR/WHITE (CLR/WHITE); Pregu Control Bar Appear? YES (CONTROL BAR); Specific Gravity 1.007 (1.002-1.036)
[2018-11-23] MEDS ORDERED: hydrOXYzine 25 MG TAB PO PRN (07:15)
[2018-11-23] MEDS ORDERED: Ibuprofen 200 MG TAB PO PRN (07:15)
[2018-11-23] MEDS ORDERED: VANCOMYCIN IVPB PRN (07:15)
[2018-11-23 07:48] VITALS: BMI 55.2
[2018-11-23] MEDS: HYDROcodone/Acetaminophen 5/325 mg Tablet PO PRN ×2 (08:22→18:38)
[2018-11-23] MEDS: diphenhydrAMINE 2% CREAM 28.4 GM TUBE TOP PRN (08:23)
[2018-11-23] MEDS: Enoxaparin Sodium 40 MG/0.4 ML SYRINGE SC SCH (08:24)
[2018-11-23] MEDS: Piperacillin/Tazobactam 3.375 GM in Sodium Chloride 0.9% 100 ML IVPB SCH ×2 (10:34→15:28)
--- NOTE | 2018-11-23 12:08 | PDOC.EVN ---
Addendum entered and electronically signed by Mark Carey MD 11/23/18 12:29: shortly after leaving bedside patient started to vomit Still denies sob or swelling of airway no meds had been given asked for epi to be given right away after this patient is somewhat better added IV solu-medrol one time dose, pepcid IV will follow closely Consider transfer to [facility] if not improving after she receives these meds Called pharmacy asked them to send up stat Original Note: Event Note - Event Note Event Note: Called to bedside for worsening rash petechial red rash extending to back, chest, some on cheeks Patient denies SOB, cough, pain Denies itchiness, has some pain at L leg from cellulitus consider red man syndrome from vanc despite being exposed during last hospitalization Will give prednisone po, iv benadryl, im epi now and recheck shortly Patient seen with Dr Ananth Carey she is experiencing worsening allergic reaction that she initially presented with BP is stable very anxious facial swelling and notable increased generalized hives will step up treatment with benadryl, H2 blockage , epinephrine IM and IV steroid. Concern with other potentilal non infectious etiologies of presumed cellulitis and now drug reaction to ibuprophen verse cleocin as these only RX she took at home. Will slow down vancomycin infusion rate. 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 feet with partially treated tinea pedis and will resume lamisil cream bid. Await ID recommendations otherwise she currently appear improved with stable VS s/p benadryl and epinephrine. OK move higher level of care if declines.
[2018-11-23] MEDS ORDERED: EPINEPHrine 1 MG/ML AMP IM SCH (12:15)
[2018-11-23] MEDS ORDERED: diphenhydrAMINE 50 MG/ML VIAL IVP SCH (12:15)
[2018-11-23] MEDS ORDERED: methylPREDNISolone Sod Succ/PF 125 MG/2 ML VIAL IVP SCH (12:30)
[2018-11-23] MEDS ORDERED: Pantoprazole 40 MG VIAL IVP SCH (12:30)
[2018-11-23] MEDS ORDERED: predniSONE 50 MG TAB PO SCH (12:30)
[2018-11-23] MEDS ORDERED: Famotidine/PF 20 mg/2ml Vial SLOW IVP SCH (12:30)
--- NOTE | 2018-11-23 12:51 | PDOC.EVN ---
Event Note - Event Note Event Note: re-evaluated improved after epi head to toe exam shows no other chagnes as noted rectal exam neg, no foreighn objects in vaginal vault
[2018-11-23 12:56] LABS: #Eosinphils 0.4 thou/uL (0.0-0.7); #Lymphocytes 2.8 thou/uL (1.20-3.40); #Monocytes 0.4 thou/uL (0.11-0.59); #Neutrophils 11.8 thou/uL (1.40-6.50); %Basophils 0.1 % (0.0-1.0); %Eosinophils 2.4 % (0.0-10.0); %Monocytes 2.6 % (0.0-10.0); %Neutrophils 76.9 % (42.0-75.0); Hemoglobin 14.1 g/dL (12.0-16.0); Mean Corpuscular HGB CONC 33.9 g/dL (32.0-36.0); Mean Corpuscular Hemoglobin 30.3 pg (27.0-31.0); Mean Corpuscular Volume 89.3 fL (78.0-98.0); Platelet Count 337 thou/uL (130-400); RBC Distribution Width 11.6 % (11.5-14.5); Red Blood Cell (RBC) Count 4.65 mill/uL (4.20-5.40); White Blood Cell (WBC) Count 15.4 thou/uL (4.8-10.8)
[2018-11-23 13:05] LABS: Lactic Acid 1.6 mmol/L (0.5-2.2)
[2018-11-23 13:21] LABS: ALT (SGPT) 43 U/L (8-55); AST (SGOT) 30 U/L (5-34); Alkaline Phosphatase 80 U/L (40-150); Anion Gap 13 mmol/L (10-20); BUN (Urea Nitrogen) 7 mg/dL (7.0-18.7); Bilirubin, Total 0.6 mg/dL (0.2-1.2); Calc. Creatinine Clearance 258 mL/min (70-130); Calcium 9.8 mg/dL (7.8-10.44); Carbon Dioxide 27 mmol/L (22-29); Chloride 105 mmol/L (98-107); Estimated GFR-MDRD 85; Globulin 3.9 g/dL (2.4-3.5); Glucose 116 mg/dL (70-105); Potassium 3.5 mmol/L (3.5-5.1); Protein, Total 7.9 g/dL (6.0-8.3); Sodium 141 mmol/L (136-145)
[2018-11-23] MEDS ORDERED: Lidocaine 1% (PF) 30 ML VIAL ONE ×2 (13:35→13:45)
--- NOTE | 2018-11-23 13:51 | PDOC.EVN ---
Event Note - Event Note Event Note: re-check rash mildly improving, no airway swelling VSS taking punch biopsy to eval sweet syndrome also consider reflex sympathetic dystrophy syndrome
--- NOTE | 2018-11-23 14:14 | PDOC.EVN ---
Event Note - Event Note Event Note: ordered lamisil for althete's foot this could be another source of infection
[2018-11-23] MEDS ORDERED: Lidocaine 1% (PF) 30 ML VIAL FS SCH (15:45)
--- NOTE | 2018-11-23 16:50 | PDOC.EVN ---
Event Note - Event Note Event Note: Procedure note for Skin Biopsy PRE-OP DIAGNOSIS: cellulitis POST-OP DIAGNOSIS: pending biopsy results PROCEDURE: skin biopsy of L lower leg Performing Physician: Maged Carey MD Supervising Physician: MD Smith PROCEDURE: Punch biopsy, 4 mm The area surrounding the skin lesion was prepared and draped in the usual sterile manner. 4 ml 1% Lidocaine was used for anesthesia. The lesion was removed in the usual manner by punch biopsy. Hemostasis was assured. The patient tolerated the procedure well. Closure: 1 interrupted suture, 4.0 proline Followup: The patient tolerated the procedure well without complications. 1 ml blood loss. Addendum - Attending - Attending Attestation Date/Time: 11/24/18 8296 I personally evaluated the patient and discussed the management with Dr. Sangita Carey and was present to supervise the informed consent and 4mm punch biopsy procedure no complications . Patient tolerated procedure well.
[2018-11-23] MEDS: hydrOXYzine 25 MG TAB PO SCH (17:15)
[2018-11-23] MEDS ORDERED: Famotidine 20 MG TAB PO SCH (21:00)
[2018-11-23] MEDS: Terbinafine 1% 30 GM TUBE TOP SCH (21:06)
[2018-11-24] MEDS: HYDROcodone/Acetaminophen 5/325 mg Tablet PO PRN ×2 (00:30→18:11)
[2018-11-24] MEDS: hydrOXYzine 25 MG TAB PO SCH ×5 (00:31→23:14)
[2018-11-24] MEDS: Piperacillin/Tazobactam 3.375 GM in Sodium Chloride 0.9% 100 ML IVPB SCH (02:00)
[2018-11-24 04:56] LABS: #Lymphocytes 1.4 thou/uL (1.20-3.40); #Monocytes 0.2 thou/uL (0.11-0.59); #Neutrophils 14.7 thou/uL (1.40-6.50); %Basophils 0.2 % (0.0-1.0); %Eosinophils 0.2 % (0.0-10.0); %Lymphocytes 8.5 % (21.0-51.0); %Monocytes 1.5 % (0.0-10.0); %Neutrophils 89.7 % (42.0-75.0); Hemoglobin 12.8 g/dL (12.0-16.0); Mean Corpuscular Hemoglobin 30.7 pg (27.0-31.0); Mean Corpuscular Volume 90.1 fL (78.0-98.0); Mean Platelet Volume 7.5 fL (7.4-10.4); Platelet Count 307 thou/uL (130-400); RBC Distribution Width 11.6 % (11.5-14.5); Red Blood Cell (RBC) Count 4.19 mill/uL (4.20-5.40); White Blood Cell (WBC) Count 16.4 thou/uL (4.8-10.8)
[2018-11-24 05:14] LABS: Anion Gap 11 mmol/L (10-20); BUN (Urea Nitrogen) 9 mg/dL (7.0-18.7); Calc. Creatinine Clearance 306 mL/min (70-130); Calcium 9.3 mg/dL (7.8-10.44); Carbon Dioxide 24 mmol/L (22-29); Chloride 107 mmol/L (98-107); Estimated GFR-MDRD Greater than 90; Glucose 176 mg/dL (70-105); Potassium 3.6 mmol/L (3.5-5.1); Sodium 138 mmol/L (136-145)
--- NOTE | 2018-11-24 07:25 | PDOC.FM ---
- Subjective Subjective: Pt reports she is improved from yesterday. She state that the rash is still present but the itching is improved. She is having less swelling in her LLE. She states she has been able to get up and walk some. Her pain is controlled. She denies respiratory distress or throat swelling. - Objective MAR Reviewed: Yes Vital Signs & Weight: Vital Signs (12 hours) Temp Pulse Resp BP Pulse Ox 11/24/18 04:00 98.1 F 59 L 16 126/67 95 11/23/18 20:50 96 11/23/18 20:00 98.6 F 72 18 129/73 96 Weight Weight 155.129 kg I&O: 11/23/18 11/24/18 11/25/18 06:59 06:59 06:59 Intake Total 2240 Balance 2240 Result Diagrams: 11/24/18 04:17 11/24/18 04:17 Phys Exam - Physical Examination Constitutional: NAD HEENT: moist MMs Neck: supple, full ROM Respiratory: no wheezing, no rales, clear to auscultation bilateral Cardiovascular: RRR, no significant murmur Gastrointestinal: soft, non-tender, no distention, positive bowel sounds Musculoskeletal: pulses present, edema present (LLE is improving, more skin creases are present on her foot) Neurological: normal sensation, moves all 4 limbs Psychiatric: normal affect, A&O x 3 Skin: cap refill <2 seconds Deviation from normal: Improving erythema, on body, LLE eryethma is grossly unchanged Dx/Plan (1) Anxiety Code(s): F41.9 - ANXIETY DISORDER, UNSPECIFIED Status: Chronic (2) Cellulitis Code(s): L03.90 - CELLULITIS, UNSPECIFIED Status: Acute (3) Leukocytosis Code(s): D72.829 - ELEVATED WHITE BLOOD CELL COUNT, UNSPECIFIED Status: Acute - Plan Plan: This is a mobidly obese female with a pmh of anxiety/depression and asthma LLE cellulitis vs inflammatory reaction -Continue broad spectrum abx -Continue Ibuprofen and norco for pain -Consulted Dr. Arora, pending recommendations -Pending punch biopsy results Pruritic rash, improving -Hydroxyzine, benadryl, steroids -s/p epi Leukocytosis -Managed as above Depression/anxiety -Continue home sertraline Migraines -Currently asymptomatic Asthma -No recent exacerbations Addendum - Attending - Attending Attestation Date/Time: 11/24/18 2591 I personally evaluated the patient and discussed the management with Dr. Trinidad I agree with the History, Examination, Assessment and Plan documented above with any addition or exceptions noted below. Patient with presumed Drug Hypersensitivity reaction. Cellulitis to area LLE with prior trauma and considering alternative etiologies such as Complex regional pain syndrome , sweets ,vasculitis will d/c vancomycin and zosyn and continue strep and staph coverage with cephalosporin. Appreciate recommendations from Dr Arora.
[2018-11-24 07:57] LABS: Vancomycin, Trough 19.9 ug/mL
[2018-11-24] MEDS ORDERED: Piperacillin/Tazobactam 3.375 GM in Sodium Chloride 0.9% 100 ML IVPB SCH (08:00)
[2018-11-24] MEDS: Famotidine/PF 20 mg/2ml Vial SLOW IVP SCH (08:34)
[2018-11-24] MEDS: Enoxaparin Sodium 40 MG/0.4 ML SYRINGE SC SCH (08:34)
[2018-11-24] MEDS ORDERED: methylPREDNISolone Sod Succ/PF 125 MG/2 ML VIAL IVP SCH (09:00)
[2018-11-24] MEDS: Terbinafine 1% 30 GM TUBE TOP SCH ×2 (09:00→21:48)
[2018-11-24] MEDS: predniSONE 50 MG TAB PO SCH (09:59)
[2018-11-24] MEDS: diphenhydrAMINE 2% CREAM 28.4 GM TUBE TOP PRN ×2 (10:05→23:14)
--- NOTE | 2018-11-24 10:24 | PDOC.EVN ---
Event Note - Event Note Event Note: Pt had a reaction during antibiotic treatment today consisting of hives all over. Vancomycin was infused slowly. She denies SOB, facial, or tongue swelling. She reports anxiety. Pt has no wheezing or signs of respiratory distress. We are stopping antibiotics for now and giving benadryl, epinephrine IM, and ativan. Will follow up on pt.
[2018-11-24] MEDS ORDERED: Lorazepam 2 MG/ML VIAL SLOW IVP SCH ×2 (10:30→14:30)
[2018-11-24] MEDS ORDERED: diphenhydrAMINE 50 MG/ML VIAL IVP SCH ×2 (10:30→14:15)
[2018-11-24] MEDS ORDERED: EPINEPHrine 1 mg/ml MDV (1ml Charge) IM SCH ×2 (10:30→14:30)
[2018-11-24] MEDS ORDERED: EPINEPHrine 1 MG/ML AMP ONE ×2 (11:19→15:51)
[2018-11-24] MEDS ORDERED: diphenhydrAMINE 50 MG/ML VIAL ONE ×2 (11:19→13:56)
[2018-11-24] MEDS ORDERED: ADMIXTURE FEE IVPB SCH (14:00)
[2018-11-24] MEDS ORDERED: CEFAZOLIN 2 GM in Premix Bag 1 BAG IVPB SCH (14:00)
[2018-11-24] MEDS ORDERED: CEFAZOLIN 1 GM VIAL SLOW IVP SCH (14:00)
[2018-11-24] MEDS ORDERED: CEFAZOLIN IVPB SCH (14:00)
[2018-11-24] MEDS ORDERED: SODIUM CHLORIDE IVPB SCH (14:00)
[2018-11-24 15:55] LABS: Band 3 % (5-11); Hemoglobin 12.8 g/dL (12.0-16.0); Lymphocytes 2 % (21-51); MDiff Complete? YES; Mean Corpuscular HGB CONC 33.4 g/dL (32.0-36.0); Mean Corpuscular Hemoglobin 30.2 pg (27.0-31.0); Mean Corpuscular Volume 90.3 fL (78.0-98.0); Mean Platelet Volume 7.3 fL (7.4-10.4); Monocytes 1 % (0-10); Neutrophil 94 % (42-75); Platelet Count 306 thou/uL (130-400); Platelet Morphology Comment Appears Adequate; RBC Distribution Width 11.6 % (11.5-14.5); Red Blood Cell (RBC) Count 4.26 mill/uL (4.20-5.40); White Blood Cell (WBC) Count 21.2 thou/uL (4.8-10.8)
--- NOTE | 2018-11-24 16:20 | CON ---
DATE OF CONSULTATION: 11/24/2018 REASON FOR CONSULTATION: Allergic reactions, cellulitis. HISTORY OF PRESENT ILLNESS: A 23-year-old with history of obesity, possible hydradenitis, who developed left lower extremity cellulitis in October, treated with IV and then oral clindamycin and discharged home on clindamycin and ibuprofen, developed areas of itching in her skin and hives in her upper limbs, chest, abdomen. She came to the hospital, readmitted, was restarted on antimicrobial therapy and has had recurrent episodes of hives and appears anxious about it. The left leg eruption is less extensive than what it had been before. It is pruritic rather than painful for the most part. No headaches. No visual symptoms, sore throat, odynophagia, or dysphagia. No cough, sputum production, or chest pain. No dyspnea. No abdominal pain or diarrhea. No genitourinary symptoms. No joint symptoms. MEDICAL HISTORY: 1. Obesity. 2. Asthma. 3. Polycystic ovary syndrome. 4. Migraines. 5. Depression. 6. Anxiety. FAMILY HISTORY: Type 2 diabetes. SURGICAL HISTORY: Tonsillectomy. SOCIAL HISTORY: She works in [employer] with [employer]. Former smoker. Occasional alcoholic beverage use. No methamphetamine or cocaine use. CURRENT MEDICATIONS: 1. Zosyn. 2. Vancomycin. 3. Prednisone. 4. Epinephrine. 5. Enoxaparin. 6. Diphenhydramine. PHYSICAL EXAMINATION: VITAL SIGNS: Temperature is normal, BP 140/84, pulse 75, respirations 16, and O2 saturation 99. SKIN: There is plaque of erythema over the anterior left leg, extending from about 10 cm below the left knee all the way to the ankle, kind of oblong-shaped with some scaling in the anterior aspect of it. Not tender to touch, mostly pruritic. She also has small areas of maculopapular rash, scattered throughout the upper and lower extremities, chest, and abdomen. She has areas of folliculitis and possible hydradenitis in the abdomen. LYMPHATICS: No lymphadenopathy. HEENT: Ocular movements conjugate. Oral cavity normal. Numerous teeth in place in good shape. NECK: Supple. No jugular vein distention or carotid bruits. LUNGS: Symmetric. Clear breath sounds. HEART: S1 and S2. Regular rate. No S3 or S4. ABDOMEN: Soft, not distended or tender. No ascites. No bladder distention. EXTREMITIES: No joint inflammatory activity. Pulses are 1+ in dorsalis pedis. Plantar responses are flexor. NEUROLOGIC: Cognitive function appears to be intact. LABORATORY DATA: White cell count 15,000 and now 16.4, hemoglobin 12, and platelets 307. Sodium 138 and creatinine 0.7. Liver profile normal. Albumin 3.9. Urinalysis was normal. Microbiology have a number of negative blood cultures. Influenza test negative. ASSESSMENT: 1. Obesity with polycystic ovary syndrome. 2. Recent episode of cellulitis, treated with clindamycin and vancomycin. 3. Urticaria following discharge with readmission. 4. Persistence of urticarial eruption. DISCUSSION: It appears that the patient is having hypersensitivity reaction to probably clindamycin. Ibuprofen is a possibility as well. Vancomycin associated red man syndrome is another possibility, although that is less likely. Recommend discontinuation of all antimicrobials. When the skin reaction settles down, I will transition to oral Keflex, observe her, and then eventual discharge planning. She may have hydradenitis associated with the chronic abdominal fold lesions and axillary fold lesions as well. Hydradenitis can be associated with Crohn disease, but she does not seem to have symptoms to indicate that at this point in time. Job ID: [id number]
[2018-11-25] MEDS: HYDROcodone/Acetaminophen 5/325 mg Tablet PO PRN ×4 (00:52→22:00)
[2018-11-25 05:32] LABS: #Basophils 0.1 thou/uL (0.0-0.2); #Eosinphils 0.2 thou/uL (0.0-0.7); #Lymphocytes 4.1 thou/uL (1.20-3.40); #Monocytes 0.6 thou/uL (0.11-0.59); %Basophils 0.4 % (0.0-1.0); %Eosinophils 1.4 % (0.0-10.0); %Lymphocytes 24.2 % (21.0-51.0); %Monocytes 3.8 % (0.0-10.0); %Neutrophils 70.4 % (42.0-75.0); Hemoglobin 11.7 g/dL (12.0-16.0); Mean Corpuscular HGB CONC 33.4 g/dL (32.0-36.0); Mean Corpuscular Hemoglobin 30.5 pg (27.0-31.0); Mean Corpuscular Volume 91.3 fL (78.0-98.0); Mean Platelet Volume 7.6 fL (7.4-10.4); Platelet Count 253 thou/uL (130-400); RBC Distribution Width 11.7 % (11.5-14.5); Red Blood Cell (RBC) Count 3.85 mill/uL (4.20-5.40)
[2018-11-25 06:00] LABS: Anion Gap 12 mmol/L (10-20); BUN (Urea Nitrogen) 16 mg/dL (7.0-18.7); Calc. Creatinine Clearance 298 mL/min (70-130); Calcium 9.1 mg/dL (7.8-10.44); Carbon Dioxide 24 mmol/L (22-29); Chloride 108 mmol/L (98-107); Estimated GFR-MDRD Greater than 90; Glucose 105 mg/dL (70-105); Potassium 3.8 mmol/L (3.5-5.1); Sodium 140 mmol/L (136-145)
--- NOTE | 2018-11-25 06:33 | PDOC.FM ---
- Subjective Subjective: Nursing reports she did well overnight. She did have an episode of itching that was resolved with benadryl cream. She states her pain is controlled and she was able to walk well overnight. She reports the redness on her leg is spreading some but the swelling is decreasing. - Objective MAR Reviewed: Yes Vital Signs & Weight: Vital Signs (12 hours) Temp Pulse Resp BP Pulse Ox 11/25/18 04:00 98 F 52 L 20 109/69 95 11/25/18 00:00 98.8 F 60 20 133/80 98 11/24/18 20:00 98 F 68 20 137/81 99 Weight Weight 155.129 kg I&O: 11/23/18 11/24/18 11/25/18 06:59 06:59 06:59 Intake Total 2240 Balance 2240 Result Diagrams: 11/25/18 04:28 11/25/18 04:28 Phys Exam - Physical Examination Constitutional: NAD (morbidly obese) HEENT: moist MMs Neck: supple, full ROM Respiratory: no wheezing, no rales, no rhonchi, clear to auscultation bilateral Cardiovascular: RRR, no significant murmur Gastrointestinal: soft, non-tender, no distention, positive bowel sounds Musculoskeletal: pulses present (neurovascularly intact bilateral LE) Improving edema on the left leg Neurological: normal sensation, moves all 4 limbs Psychiatric: normal affect, A&O x 3 Skin: cap refill <2 seconds Deviation from normal: Global allergic rash is improving, LLE: redness is spreading some -: LLE redness is improved Dx/Plan (1) Anxiety Code(s): F41.9 - ANXIETY DISORDER, UNSPECIFIED Status: Chronic (2) Cellulitis Code(s): L03.90 - CELLULITIS, UNSPECIFIED Status: Acute (3) Leukocytosis Code(s): D72.829 - ELEVATED WHITE BLOOD CELL COUNT, UNSPECIFIED Status: Acute - Plan Plan: This is a mobidly obese female with a pmh of anxiety/depression and asthma LLE cellulitis vs inflammatory reaction -Holding abx as pt had reaction yesterday, will continue once this is settled down -Continue Ibuprofen and norco for pain -Consulted Dr. Arora, pending recommendations -Pending punch biopsy results Pruritic rash, improving -Hydroxyzine, benadryl, steroids -s/p epi -Pt had another episode yesterday, holding abx and monitoring for further reaction Leukocytosis -Managed as above Depression/anxiety -Continue home sertraline Migraines -Currently asymptomatic Asthma -No recent exacerbations
[2018-11-25] MEDS: hydrOXYzine 25 MG TAB PO SCH ×4 (06:48→23:32)
[2018-11-25] MEDS: Famotidine/PF 20 mg/2ml Vial SLOW IVP SCH (08:21)
[2018-11-25] MEDS: predniSONE 50 MG TAB PO SCH (08:22)
[2018-11-25] MEDS: Terbinafine 1% 30 GM TUBE TOP SCH ×2 (08:23→21:50)
[2018-11-25] MEDS: Enoxaparin Sodium 40 MG/0.4 ML SYRINGE SC SCH (08:23)
--- NOTE | 2018-11-25 12:21 | PRG ---
DATE OF SERVICE: 11/25/2018 SUBJECTIVE: Ms. Hdz's left lower extremity is still slightly erythematous, but not warm to touch. It does feel better. I think there may be an element of stasis dermatitis in addition to her cellulitis. However, her white count has been significantly elevated at times up to 21,000. We have consulted with Dr. Arora for antibiotic choices. In the event clinically, Ms. Hdz feels much better and she is currently afebrile. Job ID: [id number]
--- NOTE | 2018-11-25 22:12 | PRG ---
DATE OF SERVICE: 11/25/2018 SUBJECTIVE: Ms. Hdz is feeling a lot better. The generalized skin eruption has resolved left leg is not bothering her that much. She had a skin biopsy done that will be obtained. OBJECTIVE: VITAL SIGNS: Not particularly remarkable. GENERAL: The micro type rash is resolving. LUNGS: Clear. HEART: S1-S2, regular rate. ABDOMEN: Soft, not distended. EXTREMITIES: The left leg has a salmon colored erythema with mild pruritus noted. LABORATORY DATA: White cell count 17,000, hemoglobin 11, platelets 252. Chemistries not particularly remarkable. Microbiology is not remarkable. ASSESSMENT AND DISCUSSION: Obesity with polycystic ovary syndrome and recent episode of cellulitis, treated with clindamycin, vancomycin, and urticaria following discharge with multiple areas of skin eruption and persistence of urticarial eruption. The patient again has had a hypersensitivity reaction resulting from vancomycin administration At this moment, we are transitioning to penicillin VK at 250 mg twice daily and compression stockings and consider discharge planning. Skin biopsy has been performed. We will have to review those. Job ID: [id number] [facility]
[2018-11-25] MEDS: diphenhydrAMINE 2% CREAM 28.4 GM TUBE TOP PRN (23:16)
[2018-11-26] MEDS: hydrOXYzine 25 MG TAB PO SCH ×4 (05:34→23:39)
[2018-11-26] MEDS: HYDROcodone/Acetaminophen 5/325 mg Tablet PO PRN ×2 (05:36→12:21)
[2018-11-26 05:39] LABS: Anion Gap 10 mmol/L (10-20); BUN (Urea Nitrogen) 19 mg/dL (7.0-18.7); Calc. Creatinine Clearance 278 mL/min (70-130); Calcium 9.3 mg/dL (7.8-10.44); Carbon Dioxide 28 mmol/L (22-29); Chloride 106 mmol/L (98-107); Estimated GFR-MDRD Greater than 90; Glucose 91 mg/dL (70-105); Potassium 3.6 mmol/L (3.5-5.1); Sodium 140 mmol/L (136-145)
[2018-11-26 06:20] LABS: Eosinophils 3 % (0-10); Hemoglobin 12.1 g/dL (12.0-16.0); Lymphocytes 39 % (21-51); MDiff Complete? YES; Mean Corpuscular Hemoglobin 30.8 pg (27.0-31.0); Mean Corpuscular Volume 90.7 fL (78.0-98.0); Mean Platelet Volume 7.2 fL (7.4-10.4); Monocytes 1 % (0-10); Neutrophil 54 % (42-75); Platelet Count 290 thou/uL (130-400); RBC Distribution Width 11.6 % (11.5-14.5); Reactive Lymphocytes 3 % (0-10); Red Blood Cell (RBC) Count 3.94 mill/uL (4.20-5.40); White Blood Cell (WBC) Count 17.1 thou/uL (4.8-10.8)
--- NOTE | 2018-11-26 06:48 | PDOC.FM ---
- Subjective Subjective: Pt reports some itching overnight that was relieved by atarax. She denies SOB, cp, or abdominal pain. She reports her LLE pain is improving. - Objective MAR Reviewed: Yes Vital Signs & Weight: Vital Signs (12 hours) Temp Pulse Resp BP Pulse Ox 11/26/18 03:17 97.8 F 50 L 16 127/78 97 11/26/18 00:25 98.3 F 63 16 122/68 99 11/25/18 19:00 98.4 F 57 L 18 133/81 98 Weight Weight 155.129 kg I&O: 11/24/18 11/25/18 11/26/18 06:59 06:59 06:59 Intake Total 2240 720 720 Balance 2240 720 720 Result Diagrams: 11/26/18 04:40 11/26/18 04:40 Phys Exam - Physical Examination Constitutional: NAD HEENT: moist MMs Neck: supple, full ROM Respiratory: no wheezing, no rales, no rhonchi Cardiovascular: RRR, no significant murmur, no rub Gastrointestinal: soft, no distention, positive bowel sounds Musculoskeletal: pulses present Improving LLE edema and improving redness. Neurovascularly intact in BLE Neurological: moves all 4 limbs Psychiatric: normal affect, A&O x 3 Skin: cap refill <2 seconds Dx/Plan (1) Anxiety Code(s): F41.9 - ANXIETY DISORDER, UNSPECIFIED Status: Chronic (2) Cellulitis Code(s): L03.90 - CELLULITIS, UNSPECIFIED Status: Acute (3) Leukocytosis Code(s): D72.829 - ELEVATED WHITE BLOOD CELL COUNT, UNSPECIFIED Status: Acute - Plan Plan: This is a mobidly obese female with a pmh of anxiety/depression and asthma LLE cellulitis vs inflammatory reaction -Starting penicillin vk per ID -Continue Ibuprofen and norco for pain -Consulted Dr. Arora, pending recommendations -Pending punch biopsy results Pruritic rash, improving -Hydroxyzine, benadryl, steroids -s/p epi -Monitor for continued rash Leukocytosis -Managed as above Depression/anxiety -Continue home sertraline Migraines -Currently asymptomatic Asthma -No recent exacerbations
[2018-11-26 07:26] LABS: Hemoglobin A1c 4.8 % (4.0-6.0)
[2018-11-26] MEDS: Enoxaparin Sodium 40 MG/0.4 ML SYRINGE SC SCH (08:43)
[2018-11-26] MEDS: Famotidine/PF 20 mg/2ml Vial SLOW IVP SCH (08:47)
[2018-11-26] MEDS: Terbinafine 1% 30 GM TUBE TOP SCH ×2 (08:49→20:50)
[2018-11-26] MEDS: Penicillin V Potassium 250 MG TAB PO SCH ×2 (12:11→20:45)
--- NOTE | 2018-11-26 12:20 | PRG ---
DATE OF SERVICE: 11/26/2018 SUBJECTIVE: We stopped Ms. Hdz's antibiotics a day ago and her leg has actually improved. There is less redness, no warmth, and she feels fine. This suggests that there is an element of stasis dermatitis contributing to her leg discomfort. In the event, she is ready for discharge. Dr. Arora has recommended oral penicillin VK and this will be administered as an outpatient. Job ID: [id number]
[2018-11-26] MEDS ORDERED: Acetaminophen 500 MG TAB PO PRN (12:29)
[2018-11-26] MEDS ORDERED: traMADol HCl 50 MG TAB PO PRN (12:30)
[2018-11-26] MEDS: Ibuprofen 800 MG TAB PO SCH ×2 (17:31→20:47)
[2018-11-27 05:05] LABS: #Basophils 0.1 thou/uL (0.0-0.2); #Eosinphils 0.5 thou/uL (0.0-0.7); #Lymphocytes 5.9 thou/uL (1.20-3.40); #Monocytes 0.7 thou/uL (0.11-0.59); #Neutrophils 7.2 thou/uL (1.40-6.50); %Basophils 0.9 % (0.0-1.0); %Eosinophils 3.7 % (0.0-10.0); %Lymphocytes 40.9 % (21.0-51.0); %Monocytes 4.5 % (0.0-10.0); %Neutrophils 49.9 % (42.0-75.0); Hemoglobin 13.8 g/dL (12.0-16.0); Mean Corpuscular HGB CONC 34.1 g/dL (32.0-36.0); Mean Corpuscular Hemoglobin 30.5 pg (27.0-31.0); Mean Corpuscular Volume 89.5 fL (78.0-98.0); Mean Platelet Volume 7.1 fL (7.4-10.4); Platelet Count 287 thou/uL (130-400); RBC Distribution Width 11.6 % (11.5-14.5); Red Blood Cell (RBC) Count 4.51 mill/uL (4.20-5.40); White Blood Cell (WBC) Count 14.4 thou/uL (4.8-10.8)
[2018-11-27 05:23] LABS: Anion Gap 11 mmol/L (10-20); BUN (Urea Nitrogen) 19 mg/dL (7.0-18.7); Calc. Creatinine Clearance 290 mL/min (70-130); Calcium 8.8 mg/dL (7.8-10.44); Carbon Dioxide 26 mmol/L (22-29); Chloride 107 mmol/L (98-107); Estimated GFR-MDRD Greater than 90; Glucose 95 mg/dL (70-105); Potassium 3.5 mmol/L (3.5-5.1); Sodium 140 mmol/L (136-145)
[2018-11-27] MEDS: Ibuprofen 800 MG TAB PO SCH (05:34)
[2018-11-27] MEDS: hydrOXYzine 25 MG TAB PO SCH ×2 (05:34→12:02)
--- NOTE | 2018-11-27 06:28 | PDOC.FM ---
- Subjective Subjective: Pt reports her pain is much improved this morning. She also states she had no itching overnight. She has been able to walk and her ankle is feeling better. She states the redness is improved as well. Overall, she reports she is ready to go home and return to work. - Objective MAR Reviewed: Yes Vital Signs & Weight: Vital Signs (12 hours) Temp Pulse Resp BP Pulse Ox 11/27/18 04:00 98 F 61 20 118/74 96 11/27/18 00:00 97.7 F 62 20 133/83 97 11/26/18 20:00 97.9 F 65 20 136/81 94 L Weight Weight 155.129 kg I&O: 11/25/18 11/26/18 11/27/18 06:59 06:59 06:59 Intake Total 490 278 0803 Balance 979 927 6349 Result Diagrams: 11/27/18 04:52 11/27/18 04:52 Phys Exam - Physical Examination Constitutional: NAD HEENT: moist MMs Neck: supple, full ROM Respiratory: no wheezing, no rales, no rhonchi, clear to auscultation bilateral Cardiovascular: RRR, no significant murmur, no rub Gastrointestinal: soft, non-tender, no distention, positive bowel sounds Musculoskeletal: pulses present resolving edema Neurological: normal sensation, moves all 4 limbs Psychiatric: normal affect, A&O x 3 Deviation from normal: erythema on her leg is near resolved Dx/Plan (1) Anxiety Code(s): F41.9 - ANXIETY DISORDER, UNSPECIFIED Status: Chronic (2) Cellulitis Code(s): L03.90 - CELLULITIS, UNSPECIFIED Status: Acute (3) Leukocytosis Code(s): D72.829 - ELEVATED WHITE BLOOD CELL COUNT, UNSPECIFIED Status: Acute - Plan Plan: This is a mobidly obese female with a pmh of anxiety/depression and asthma LLE cellulitis vs inflammatory reaction -Starting penicillin vk per ID -Continue Ibuprofen and norco for pain -Consulted Dr. Arora, pending recommendations -Pending punch biopsy results -Likely discharge today Pruritic rash, improving -Hydroxyzine, benadryl, steroids -s/p epi -No rash following starting penicillin Leukocytosis -Managed as above Depression/anxiety -Continue home sertraline Migraines -Currently asymptomatic Asthma -No recent exacerbations
[2018-11-27] MEDS ORDERED: Famotidine 20 MG TAB PO SCH (09:00)
[2018-11-27] MEDS: Enoxaparin Sodium 40 MG/0.4 ML SYRINGE SC SCH (09:32)
[2018-11-27] MEDS: Penicillin V Potassium 250 MG TAB PO SCH (09:32)
--- NOTE | 2018-11-27 11:23 | PRG ---
DATE OF SERVICE: 11/27/2018 SUBJECTIVE: Ms. Hdz is fine this morning and even cheerful. She has minimal erythema. No warmth of the left lower extremity. No pain. She would be discharged today for followup with her PCP in a week or two. She is told to walk frequently, elevate legs when not walking, and wear her compression stockings. She will also complete a course of penicillin VK. Job ID: [id number]
[2018-11-27] MEDS: Terbinafine 1% 30 GM TUBE TOP SCH (12:03)
[2018-11-27 12:33] VITALS: BP 135/89; TEMP 98.2
== END 2018-11-27 13:13 | disposition home or self-care (01) | DRG 603 ==
LOC: ERS 02:14 → SURG A 04:15
PROVIDERS: ADMIT Family Medicine; ATTEND Family Medicine
PROC: 0HBJXZX Excision of Left Upper Leg Skin, External Approach, Diagnostic (ICD-10-PCS; principal; 2018-11-24)
DX: L03.116 Cellulitis of left lower limb (principal); Z68.43 Body mass index [BMI] 50.0-59.9, adult; J45.909 Unspecified asthma, uncomplicated; E28.2 Polycystic ovarian syndrome; G43.909 Migraine, unspecified, not intractable, without status migrainosus; F41.9 Anxiety disorder, unspecified; F32.9 Major depressive disorder, single episode, unspecified; E66.01 Morbid (severe) obesity due to excess calories; Z87.891 Personal history of nicotine dependence; Z91.018 Allergy to other foods; Z88.6 Allergy status to analgesic agent; I87.2 Venous insufficiency (chronic) (peripheral); M10.9 Gout, unspecified; B35.3 Tinea pedis; L50.0 Allergic urticaria; T49.0X5A Adverse effect of local antifungal, anti-infective and anti-inflammatory drugs, initial encounter; T39.315A Adverse effect of propionic acid derivatives, initial encounter
CPT/HCPCS: 36415; 80048; 80053; 80202; 81003; 81025; 83036; 83605; 84145; 85025; 85652; 86140; 88305; 96365; 96375; J0171; J0690; J1200; J1650; J2001; J2060; J2543; J2930; J3370; J7050; S0028

== ENCOUNTER 2019-02-01 12:46 | Inpatient (IN) | payer SELFPAY ==
[2019-02-01 13:13] LABS: #Basophils 0.1 thou/uL (0.0-0.2); #Eosinphils 0.5 thou/uL (0.0-0.7); #Lymphocytes 5.8 thou/uL (1.20-3.40); #Monocytes 0.8 thou/uL (0.11-0.59); #Neutrophils 11.5 thou/uL (1.40-6.50); %Basophils 0.4 % (0.0-1.0); %Eosinophils 2.6 % (0.0-10.0); %Lymphocytes 31.1 % (21.0-51.0); %Monocytes 4.5 % (0.0-10.0); %Neutrophils 61.4 % (42.0-75.0); Hemoglobin 13.9 g/dL (12.0-16.0); Mean Corpuscular HGB CONC 34.4 g/dL (32.0-36.0); Mean Corpuscular Hemoglobin 30.7 pg (27.0-31.0); Mean Corpuscular Volume 89.4 fL (78.0-98.0); Mean Platelet Volume 7.7 fL (7.4-10.4); Platelet Count 274 thou/uL (130-400); RBC Distribution Width 12.1 % (11.5-14.5); Red Blood Cell (RBC) Count 4.51 mill/uL (4.20-5.40); White Blood Cell (WBC) Count 18.8 thou/uL (4.8-10.8)
[2019-02-01 13:47] LABS: ALT (SGPT) 35 U/L (8-55); AST (SGOT) 22 U/L (5-34); Albumin 4.3 g/dL (3.5-5.0); Alkaline Phosphatase 96 U/L (40-150); Anion Gap 15 mmol/L (10-20); BUN (Urea Nitrogen) 14 mg/dL (7.0-18.7); Bilirubin, Total 0.4 mg/dL (0.2-1.2); Calc. Creatinine Clearance 0 mL/min (70-130); Calcium 9.5 mg/dL (7.8-10.44); Carbon Dioxide 20 mmol/L (22-29); Chloride 107 mmol/L (98-107); Estimated GFR-MDRD Greater than 90; Globulin 3.1 g/dL (2.4-3.5); Glucose 123 mg/dL (70-105); Lipase 35 U/L (8-78); Potassium 3.4 mmol/L (3.5-5.1); Protein, Total 7.4 g/dL (6.0-8.3); Sodium 139 mmol/L (136-145)
[2019-02-01] MEDS ORDERED: Ondansetron ODT 4 MG TAB ONE (13:57)
[2019-02-01 14:10] LABS: BHCG - Serum Negative (NEGATIVE); Pregs Control Background? CLEAR/WHITE (CLR/WHITE); Pregs Control Bar Appear? YES (CONTROL BAR)
[2019-02-01] MEDS ORDERED: Pantoprazole 40 MG VIAL ONE (14:23)
[2019-02-01] MEDS ORDERED: Morphine 4 MG/ML VIAL ONE ×2 (14:23→15:19)
--- NOTE | 2019-02-01 14:38 | RAD ---
XR Chest Pa Lat STANDARD History: [Epigastric pain] Comparison: None. Findings: Lungs are clear. No pneumothorax or effusion. Cardiac silhouette and mediastinal contours a re within normal limits. Impression: No acute intrathoracic abnormality.
--- NOTE | 2019-02-01 15:18 | ULT ---
US Gallbladder RUQ History: [Epigastric pain] Comparison: None. Findings: Real-time grayscale and color evaluation of the right upper quadrant of the abdomen was per formed. Aorta is not well seen. Visualized portion pancreas unremarkable. Liver is enlarged measuring 18.8 cm in length with diffuse increased hepatic echotexture. No pericholecystic fluid. Gallbladder wall thickness is normal. Sonographic Francisco sign is negative. There is cholelithiasis without cholecystitis. Portal vein is patent with turbulent flow. Common bile duct measures 5 mm, normal. Right kidney measures 11.4 x 4.1 x 5.6 cm without mass, hydro nephrosis, or abnormal calcifications. Impression: 1. Cholelithiasis without acute cholecystitis. 2. Diffuse increased hepatic echotexture indicates steatosis. 3. Turbulent flow within the portal vein can be seen with portal hypertension, although would be abno rmal in a patient of this age.
[2019-02-01] MEDS ORDERED: Piperacillin/Tazobactam 4.5 GM VIAL ONE (15:21)
[2019-02-01 15:53] LABS: Bilirubin Negative (Negative); Blood, Urine Negative (Negative); Clarity CLOUDY (Clear); Glucose, Urine (Dipstick) Negative (Negative); Leukocyte Small (Negative); Nitrite Negative (Negative); Protein, Urine (Dipstick) Negative (Neg-Trace); Specific Gravity, Urine 1.016 (1.002-1.036); Urobilinogen 0.2 mg/dL (0.2-1.0); pH, Urine 7.5 (5.0-9.0)
[2019-02-01 15:56] LABS: Bacteria/HPF 1+ HPF (None Seen); Hyaline Casts/LPF 4-6 HYALINE CAST LPF (0-3 Hyaline); Pathc Cast-AUWi Flag 1.49 (0-2.49)
[2019-02-01 15:57] LABS: RBC/HPF None Seen HPF (0-3)
[2019-02-01 15:58] LABS: Pregnancy Test - Urine (BHCG) Negative (Negative); Pregu Control Background? CLEAR/WHITE (CLR/WHITE); Pregu Control Bar Appear? YES (CONTROL BAR); Specific Gravity 1.016 (1.002-1.036)
--- NOTE | 2019-02-01 16:24 | CT ---
CT ABDOMEN WITH CONTRAST CT PELVIS WITH CONTRAST: DATE: 02/01/2019 HISTORY: 23-year-old female with epigastric pain TECHNIQUE: IV injection of iodinated contrast media: Administered Oral contrast media:Not administered FINDINGS: Liver: No focal solid mass. Spleen: No splenomegaly.. Pancreas: No mass or surrounding fat stranding.. Adrenals: No mass.. Kidneys: No hydronephrosis or enhancement abnormalities.. Ureters: No dilation. Bladder: No pathology identified. Abdominal aorta: No aneurysm. Small bowel: No dilation. Colon: No adjacent fat stranding. Appendix: No dilation or adjacent fat stranding.. Free air: None. Free fluid: None. IMPRESSION: No major pathology identified..
[2019-02-01] MEDS ORDERED: cefTRIAXone\\ROCEPHIN 1 GM VIAL ONE (16:41)
[2019-02-01] MEDS ORDERED: hydrALAZINE 20 MG/ML VIAL SLOW IVP PRN (17:01)
[2019-02-01] MEDS ORDERED: Ondansetron ODT 8 MG TAB SL PRN (17:03)
[2019-02-01] MEDS ORDERED: Ketorolac Tromethamine 30 MG/ML VIAL IVP PRN (17:03)
[2019-02-01] MEDS ORDERED: Ondansetron PF 4 MG/2 ML Vial IVP PRN (17:03)
[2019-02-01] MEDS ORDERED: Ondansetron PF 4 MG/2 ML Vial IVP SCH (17:15)
[2019-02-01] MEDS ORDERED: Morphine 2 MG/ML SYRINGE SLOW IVP PRN (17:16)
[2019-02-01] MEDS ORDERED: Piperacillin/Tazobactam 4.5 GM in Sodium Chloride 0.9% 100 ML IVPB SCH (18:00)
[2019-02-01] MEDS: Lactated Ringer's 1,000 ML IV SCH (20:31)
--- NOTE | 2019-02-01 20:52 | HP ---
SUBJECTIVE: Ivana Hdz is a 23-year-old, morbidly obese, female, presents with biliary colic. She is seen in the emergency room. Ultrasound reveals gallstones, normal bile duct caliber. Liver function tests were normal. She was admitted overnight for intravenous antibiotics for laparoscopic cholecystectomy tomorrow. ALLERGIES: CLINDAMYCIN AND VANCOMYCIN. TOBACCO: None. ALCOHOL: None. MEDICATIONS: Atarax, Benadryl, sertraline, ibuprofen. PAST MEDICAL HISTORY: Noncontributory. PAST SURGICAL HISTORY: Noncontributory. 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 She is , but her is not with her tonight. REVIEW OF SYSTEMS: Noncontributory. PHYSICAL EXAMINATION: VITAL SIGNS: Temperature 97.5, pulse 64, 99% on room air, respiratory rate 16, weight 152 kg. LUNGS: Clear to auscultation. CARDIAC: Regular rate and rhythm. No murmur or gallop. ABDOMEN: Soft, obese. Tenderness in the right upper quadrant, guarding, rebound. Positive Francisco's. EXTREMITIES: Unremarkable. DIAGNOSTIC DATA: Ultrasound reveals gallstones, normal bile duct caliber. CAT scan is normal. ASSESSMENT: Acute cholecystitis, cholelithiasis. PLAN: Laparoscopic video cholecystectomy tomorrow. She understands risks and benefits, consents. Job ID: [id number]
[2019-02-01] MEDS ORDERED: Enoxaparin Sodium 40 MG/0.4 ML SYRINGE SC SCH (21:00)
[2019-02-01] MEDS: Piperacillin/Tazobactam 4.5 GM in Sodium Chloride 0.9% 100 ML IVPB SCH (22:14)
[2019-02-01] MEDS: Morphine 4 MG/ML VIAL SLOW IVP PRN (22:21)
[2019-02-02] MEDS: Piperacillin/Tazobactam 4.5 GM in Sodium Chloride 0.9% 100 ML IVPB SCH ×2 (04:10→10:12)
[2019-02-02 06:07] VITALS: BMI 53.9
[2019-02-02] MEDS: Morphine 4 MG/ML VIAL SLOW IVP PRN (06:25)
[2019-02-02] MEDS: Lactated Ringer's 1,000 ML IV SCH ×2 (07:15→07:22)
[2019-02-02] MEDS ORDERED: Midazolam HCl 2 mg/2 ml Vial ONE (09:22)
[2019-02-02] MEDS ORDERED: Bupivacaine HCl 0.5%/Epinephrine 1:200,000/PF 30 ml Vial ONE (09:28)
[2019-02-02] MEDS ORDERED: Fentanyl 100 MCG/2 ML VIAL ONE ×2 (09:34→11:06)
[2019-02-02] MEDS ORDERED: PACU-Morphine 4MG/ML VIAL SLOW IVP PRN (10:26)
[2019-02-02] MEDS ORDERED: Promethazine HCl 25 MG/ML VIAL SLOW IVP PRN (10:26)
[2019-02-02] MEDS ORDERED: Promethazine HCl 25 MG/ML VIAL IM PRN (10:26)
[2019-02-02] MEDS ORDERED: Morphine Sulfate 2 MG/ML SYRINGE SLOW IVP PRN (10:26)
[2019-02-02] MEDS ORDERED: Meperidine HCl/PF 25 MG/ML VIAL SLOW IVP PRN (10:26)
[2019-02-02] MEDS ORDERED: Ondansetron HCl/PF 4 MG/2 ML Vial IVP PRN (10:26)
[2019-02-02] MEDS ORDERED: HYDROmorphone 2 MG/ML VIAL SLOW IVP PRN (10:26)
[2019-02-02] MEDS ORDERED: traMADol HCl 50 MG TAB PO PRN ×2 (10:52)
[2019-02-02] MEDS ORDERED: Ibuprofen 600 MG TAB PO PRN (10:52)
[2019-02-02] MEDS ORDERED: Acetaminophen 500 MG TAB PO PRN ×2 (10:52→10:53)
[2019-02-02] MEDS ORDERED: Ibuprofen 200 MG TAB PO PRN (10:53)
[2019-02-02] MEDS ORDERED: Acetaminophen 1,000 MG in Premix Bag 1 BAG IVPB PRN (11:58)
[2019-02-02 11:59] VITALS: BP 156/81; TEMP 98.5
[2019-02-02] MEDS ORDERED: Ketorolac Tromethamine 30 MG/ML VIAL IVP PRN (11:59)
[2019-02-02] MEDS ORDERED: hydrOXYzine 25 MG TAB PO SCH (12:00)
--- NOTE | 2019-02-02 17:18 | OP ---
DATE OF PROCEDURE: 02/02/2019 PREOPERATIVE DIAGNOSES: Morbid obesity, cholecystitis, cholelithiasis. POSTOPERATIVE DIAGNOSES: Morbid obesity, cholecystitis, cholelithiasis, fatty liver. PROCEDURE PERFORMED: Laparoscopic video cholecystectomy. ANESTHESIA: General, local 0.5% Marcaine with epinephrine 30 mL, total volume used. DESCRIPTION OF PROCEDURE: The patient was taken to the operating room where under general anesthesia, abdomen was prepared with ChloraPrep and draped in routine fashion. Local anesthetic was infiltrated in the skin and subcutaneous tissue about all port sites. Right subcostal incision was made, midclavicular and anterior axillary lines, and pneumoperitoneum to 15 mmHg was obtained with a Veress needle, replacing it with a 5 port, inserting the other 5 port, and inserting in the right subxiphoid incision an 11 port under laparoscopic visualization. A supraumbilical incision was made and a 5 port was placed. Video laparoscope was moved to this port. The liver was fatty. Gallbladder had omental adhesions. Fundus of the gallbladder was grasped at the cephalad. Infundibulum was grasped laterally after omental adhesions were taken down from the body. Cystic artery and duct were dissected free. Critical view was obtained. Cystic artery and duct were doubly clipped proximally, dividing gallbladder, dissecting free from liver bed, obtaining good hemostasis prior to division of final peritoneal attachments. Gallbladder and gallstones were removed, submitted to Pathology. Good hemostasis was noted. Each skin incision was approximated with interrupted subdermal 4-0 Monocryl and [place] glue was applied. The patient tolerated the procedure well. Job ID: [id number]
--- NOTE | 2019-02-03 16:09 | DIS ---
DATE OF ADMISSION: 02/01/2019 DATE OF DISCHARGE: 02/02/2019 Ivana Hdz is a 23-year-old morbidly obese, presents to the emergency room with the epigastric right upper quadrant pain, intractable. Liver function tests normal. Ultrasound, gallstones. The patient admitted and received intravenous fluids and antibiotics, underwent laparoscopic video cholecystectomy and discharged home postoperatively with Tylenol, Motrin, and p.r.n. tramadol for pain. She is given Zofran. Follow up in my office in 2 to 3 weeks. Diet and activity as tolerated. Job ID: [id number]
== END 2019-02-02 17:45 | disposition home or self-care (01) | DRG 418 ==
LOC: ERS 12:46 → SURG A 17:07
PROVIDERS: ADMIT Specialist; ATTEND Specialist
PROC: 0FT44ZZ Resection of Gallbladder, Percutaneous Endoscopic Approach (ICD-10-PCS; principal; 2019-02-02)
DX: K80.00 Calculus of gallbladder with acute cholecystitis without obstruction (principal); Z68.43 Body mass index [BMI] 50.0-59.9, adult; K76.0 Fatty (change of) liver, not elsewhere classified; E66.01 Morbid (severe) obesity due to excess calories; J45.909 Unspecified asthma, uncomplicated; G43.909 Migraine, unspecified, not intractable, without status migrainosus; F41.9 Anxiety disorder, unspecified; F32.9 Major depressive disorder, single episode, unspecified; Z88.1 Allergy status to other antibiotic agents; Z90.89 Acquired absence of other organs
CPT/HCPCS: 36415; 71046; 74177; 76705; 80053; 81003; 81015; 81025; 83605; 83690; 84703; 85025; 87040; 87086; 93005; 94640; 94760; C9113; J0131; J0670; J0696; J1885; J2250; J2270; J2543; J3010; J3490; J7620; Q0162

== ENCOUNTER 2019-07-12 15:02 | Emergency (ER) | payer SELFPAY ==
[2019-07-12 15:25] LABS: #Basophils 0.1 thou/uL (0.0-0.2); #Eosinphils 0.4 thou/uL (0.0-0.7); #Lymphocytes 4.6 thou/uL (1.20-3.40); #Monocytes 0.8 thou/uL (0.11-0.59); #Neutrophils 9.4 thou/uL (1.40-6.50); %Basophils 0.5 % (0.0-1.0); %Eosinophils 2.9 % (0.0-10.0); %Lymphocytes 30.3 % (21.0-51.0); %Monocytes 5.2 % (0.0-10.0); %Neutrophils 61.2 % (42.0-75.0); Hemoglobin 14.1 g/dL (12.0-16.0); Mean Corpuscular HGB CONC 35.1 g/dL (32.0-36.0); Mean Corpuscular Hemoglobin 31.5 pg (27.0-31.0); Mean Corpuscular Volume 89.8 fL (78.0-98.0); Mean Platelet Volume 7.1 fL (7.4-10.4); Platelet Count 305 thou/uL (130-400); RBC Distribution Width 11.8 % (11.5-14.5); Red Blood Cell (RBC) Count 4.47 mill/uL (4.20-5.40); White Blood Cell (WBC) Count 15.3 thou/uL (4.8-10.8)
[2019-07-12 15:34] LABS: BHCG - Serum Negative (NEGATIVE); Pregs Control Background? CLEAR/WHITE (CLR/WHITE); Pregs Control Bar Appear? YES (CONTROL BAR)
[2019-07-12 15:47] LABS: ALT (SGPT) 39 U/L (8-55); AST (SGOT) 28 U/L (5-34); Alkaline Phosphatase 98 U/L (40-110); Anion Gap 10 mmol/L (10-20); BUN (Urea Nitrogen) 11 mg/dL (7.0-18.7); Bilirubin, Total 0.4 mg/dL (0.2-1.2); Calc. Creatinine Clearance 0 mL/min (70-130); Calcium 8.9 mg/dL (7.8-10.44); Carbon Dioxide 26 mmol/L (22-29); Chloride 107 mmol/L (98-107); Estimated GFR-MDRD Greater than 90; Globulin 3.2 g/dL (2.4-3.5); Glucose 129 mg/dL (70-105); Potassium 3.6 mmol/L (3.5-5.1); Protein, Total 7.2 g/dL (6.0-8.3); Sodium 139 mmol/L (136-145)
[2019-07-12] MEDS ORDERED: Ketorolac Tromethamine 30 MG/ML VIAL ONE (16:19)
[2019-07-12 16:25] LABS: Bilirubin Negative (Negative); Blood, Urine Negative (Negative); Clarity Clear (Clear); Glucose, Urine (Dipstick) Normal (Negative); Leukocyte Negative Leu/uL (Negative); Nitrite Negative (Negative); Protein, Urine (Dipstick) 20 mg/dL (Neg-Trace); Urobilinogen Normal mg/dL (Less than 2)
--- NOTE | 2019-07-12 17:01 | ULT ---
PELVIC ULTRASOUND: 07/12/19 HISTORY: History of polycystic ovaries. TECHNIQUE: Transabdominal and endovaginal imaging of the pelvis is performed. FINDINGS: Neither ovary is appreciated due to significant bowel gas. No obvious fluid in the left or right adne xa. The uterus is identified, without myometrial masses. The uterus measures 3.1 x 5.3 cm in the long itudinal plane. Multiple Nabothian cysts are noted. IMPRESSION: 1. Multiple Nabothian cysts. 2. Nonvisualization o the left and right ovary due to significant bowel gas. POS: PPP
[2019-07-12] MEDS ORDERED: Morphine 4 MG/ML VIAL ONE ×2 (17:23→18:50)
--- NOTE | 2019-07-12 19:01 | CT ---
CT abdomen and pelvis without contrast: HISTORY: Left lower quadrant pain FINDINGS: Absence of oral and IV contrast reduces the sensitivity of the exam particularly for the evaluation o f solid organs and bowel. The lung bases are clear. No free air or free fluid is seen in the abdomen or pelvis. The patient is post Cholecystectomy. No calculi are seen in the kidneys, ureters or the urinary bladder. No hydroureteronephrosis is noted in either side. Uterus is present. The small bowel loops are not abnormally dilated. A normal-appearing appendix is noted. No acute osseous abnormalities are seen. IMPRESSION: No CT evidence of urinary tract calculi or obstruction.
[2019-07-12] MEDS ORDERED: cefTRIAXone\\ROCEPHIN 250 MG VIAL ONE (19:17)
[2019-07-14 21:22] LABS: Chlamydia by PCR Not Detected (NotDetected); GC by PCR Not Detected (NotDetected)
== END 2019-07-12 19:47 | disposition home or self-care (01) ==
LOC: ERS 15:02
DX: N73.9 Female pelvic inflammatory disease, unspecified (principal); J45.909 Unspecified asthma, uncomplicated; G43.909 Migraine, unspecified, not intractable, without status migrainosus; Z87.891 Personal history of nicotine dependence; Z79.51 Long term (current) use of inhaled steroids
CPT/HCPCS: 36415; 74176; 76856; 80053; 81003; 84703; 85025; 87086; 87480; 87491; 87510; 87591; 87660; 96372; J0500; J0696; J1885; J2270

== ENCOUNTER 2019-08-20 01:23 | Emergency (ER) | payer OTHER, SELFPAY ==
[2019-08-20] MEDS ORDERED: Ketorolac Tromethamine 60 MG/2 ML VIAL ONE (02:17)
--- NOTE | 2019-08-20 09:03 | RAD ---
LEFT LITTLE FINGER 3 VIEWS: Date: 08/20/19 HISTORY: Injury to finger. FINDINGS: There is an avulsive-type fracture along the volar aspect of the base of the middle phalanx. No addit ional findings. IMPRESSION: Avulsion fracture along the volar side of the base of the middle phalanx of little finger. POS: OFF
--- NOTE | 2019-08-20 09:05 | RAD ---
LEFT SHOULDER 4 VIEWS: Date: 08/20/19 HISTORY: Shoulder pain. FINDINGS: There are no signs of fracture, dislocation, or other bony findings. IMPRESSION: Negative left shoulder. POS: OFF
== END 2019-08-20 03:20 | disposition home or self-care (01) ==
LOC: ERS 01:23
DX: S63.617A Unspecified sprain of left little finger, initial encounter (principal); M54.9 Dorsalgia, unspecified; M25.512 Pain in left shoulder; J45.909 Unspecified asthma, uncomplicated; G43.909 Migraine, unspecified, not intractable, without status migrainosus; F41.9 Anxiety disorder, unspecified; F32.9 Major depressive disorder, single episode, unspecified; F17.210 Nicotine dependence, cigarettes, uncomplicated; Z79.899 Other long term (current) drug therapy; V89.9XXA Person injured in unspecified vehicle accident, initial encounter
CPT/HCPCS: 96372; J1885

== ENCOUNTER 2019-09-03 22:51 | Emergency (ER) | payer OTHER, SELFPAY ==
[2019-09-03] MEDS ORDERED: Ondansetron ODT 4 MG TAB ONE (23:09)
[2019-09-03] MEDS ORDERED: predniSONE 20 MG TAB ONE (23:09)
--- NOTE | 2019-09-04 00:01 | RAD ---
EXAM: Two views chest PROVIDED CLINICAL HISTORY: Dyspnea, cough and congestion. COMPARISON: 02/01/2019 FINDINGS: Cardiac silhouette and pulmonary vasculature are within normal limits. The lungs are clear. The osse ous structures have a normal appearance. There has been no interval change from prior study. IMPRESSION: No acute cardiopulmonary process.
== END 2019-09-04 00:17 | disposition home or self-care (01) ==
LOC: ERS 22:51
DX: J45.901 Unspecified asthma with (acute) exacerbation (principal); J06.9 Acute upper respiratory infection, unspecified; G43.909 Migraine, unspecified, not intractable, without status migrainosus; F41.9 Anxiety disorder, unspecified; F32.9 Major depressive disorder, single episode, unspecified; F17.210 Nicotine dependence, cigarettes, uncomplicated; Z79.51 Long term (current) use of inhaled steroids
CPT/HCPCS: 71046; 87804; J7512; J7620; Q0162

== ENCOUNTER 2020-01-22 15:27 | Emergency (ER) | payer OTHER, SELFPAY ==
[2020-01-22 16:49] LABS: Bilirubin Negative (Negative); Blood, Urine Negative (Negative); Clarity Clear (Clear); Glucose, Urine (Dipstick) Normal (Negative); Leukocyte Negative Leu/uL (Negative); Nitrite Negative (Negative); Protein, Urine (Dipstick) Negative (Neg-Trace); Urobilinogen Normal mg/dL (Less than 2)
[2020-01-22 16:52] LABS: Pregnancy Test - Urine (BHCG) Negative (Negative); Pregu Control Background? CLEAR/WHITE (CLR/WHITE); Pregu Control Bar Appear? YES (CONTROL BAR); Specific Gravity 1.022 (1.002-1.036)
== END 2020-01-22 18:18 | disposition home or self-care (01) ==
LOC: ERS 15:27
DX: B37.3 Candidiasis of vulva and vagina (principal); M54.9 Dorsalgia, unspecified; J45.909 Unspecified asthma, uncomplicated; G43.909 Migraine, unspecified, not intractable, without status migrainosus; F17.210 Nicotine dependence, cigarettes, uncomplicated
CPT/HCPCS: 81003; 81025; 93005

== ENCOUNTER 2020-01-31 12:24 | Emergency (ER) | payer OTHER, SELFPAY ==
[2020-01-31] MEDS ORDERED: Fentanyl 100 MCG/2 ML VIAL ONE (12:39)
[2020-01-31 13:02] LABS: #Basophils 0.1 thou/uL (0.0-0.2); #Eosinphils 0.5 thou/uL (0.0-0.7); #Lymphocytes 4.5 thou/uL (1.20-3.40); #Monocytes 0.6 thou/uL (0.11-0.59); #Neutrophils 9.1 thou/uL (1.40-6.50); %Basophils 0.7 % (0.0-1.0); %Eosinophils 3.3 % (0.0-10.0); %Lymphocytes 30.7 % (21.0-51.0); %Monocytes 3.8 % (0.0-10.0); %Neutrophils 61.6 % (42.0-75.0); Hemoglobin 15.6 g/dL (12.0-16.0); Mean Corpuscular Volume 91.4 fL (78.0-98.0); Mean Platelet Volume 7.6 fL (7.4-10.4); Platelet Count 287 thou/uL (130-400); RBC Distribution Width 11.8 % (11.5-14.5); Red Blood Cell (RBC) Count 4.86 mill/uL (4.20-5.40); White Blood Cell (WBC) Count 14.7 thou/uL (4.8-10.8)
[2020-01-31] MEDS ORDERED: Lidocaine Viscous Sol 2% 15 ml UD Cup ONE ×4 (13:07→16:47)
[2020-01-31 13:21] LABS: ALT (SGPT) 37 U/L (8-55); AST (SGOT) 25 U/L (5-34); Albumin 4.2 g/dL (3.5-5.0); Alkaline Phosphatase 97 U/L (40-110); Anion Gap 12 mmol/L (10-20); BUN (Urea Nitrogen) 7 mg/dL (7.0-18.7); Bilirubin, Total 0.5 mg/dL (0.2-1.2); Calc. Creatinine Clearance 0 mL/min (70-130); Calcium 9.3 mg/dL (7.8-10.44); Carbon Dioxide 24 mmol/L (22-29); Chloride 107 mmol/L (98-107); Estimated GFR-MDRD Greater than 90; Globulin 3.4 g/dL (2.4-3.5); Glucose 112 mg/dL (70-105); Potassium 3.9 mmol/L (3.5-5.1); Protein, Total 7.6 g/dL (6.0-8.3); Sodium 139 mmol/L (136-145)
[2020-01-31 13:55] LABS: Acetaminophen Less than 6.0 mcg/mL (10.0-30.0); Alcohol Less than 10 mg/dL (Less than 10); Salicylate Less than 8.0 mg/dL (15.0-30.0)
[2020-01-31 14:53] LABS: Bilirubin Negative (Negative); Blood, Urine Negative (Negative); Clarity Clear (Clear); Glucose, Urine (Dipstick) Normal (Negative); Leukocyte Negative Leu/uL (Negative); Nitrite Negative (Negative); Protein, Urine (Dipstick) Negative (Neg-Trace); Urobilinogen Normal mg/dL (Less than 2)
[2020-01-31 14:58] LABS: Pregnancy Test - Urine (BHCG) Negative (Negative); Pregu Control Background? CLEAR/WHITE (CLR/WHITE); Pregu Control Bar Appear? YES (CONTROL BAR)
[2020-01-31 15:11] LABS: Medtox Control Line Valid? VALID (VALID); Medtox Reader # READER 4
[2020-01-31 15:16] LABS: Amphetamine Not Detected (NotDetected); Barbiturates Screen Not Detected (NotDetected); Benzodiazepine Screen Detected (NotDetected); Cocaine Metabolite Screen Not Detected (NotDetected); Methadone Not Detected (NotDetected); Methamphetamine Not Detected (NotDetected); Opiate Screen Not Detected (NotDetected); Oxycodone Screen Not Detected (NotDetected); Phencyclidine (PCP) Not Detected (NotDetected); THC/Cannabinoid Screen Detected (NotDetected); Tricyclic Screen Not Detected (NotDetected)
[2020-02-03 21:11] LABS: Chlamydia by PCR Not Detected (NotDetected); GC by PCR Not Detected (NotDetected)
== END 2020-01-31 16:55 | disposition home or self-care (01) ==
LOC: ERS 12:24
DX: B37.3 Candidiasis of vulva and vagina (principal); J45.909 Unspecified asthma, uncomplicated; G43.909 Migraine, unspecified, not intractable, without status migrainosus; F41.9 Anxiety disorder, unspecified; F32.9 Major depressive disorder, single episode, unspecified; F17.210 Nicotine dependence, cigarettes, uncomplicated; Z79.899 Other long term (current) drug therapy
CPT/HCPCS: 36415; 80053; 80306; 80307; 81003; 81025; 84443; 85025; 87480; 87491; 87510; 87591; 87660; 96374; J3010

== ENCOUNTER 2020-11-08 20:36 | Emergency (ER) | payer MEDICAID, SELFPAY ==
[2020-11-08] MEDS ORDERED: Ketorolac Tromethamine 30 MG/ML VIAL ONE (20:56)
== END 2020-11-08 21:15 | disposition home or self-care (01) ==
LOC: ERS 20:36
DX: S46.911A Strain of unspecified muscle, fascia and tendon at shoulder and upper arm level, right arm, initial encounter (principal); E28.2 Polycystic ovarian syndrome; J45.909 Unspecified asthma, uncomplicated; G43.909 Migraine, unspecified, not intractable, without status migrainosus; F17.210 Nicotine dependence, cigarettes, uncomplicated; X50.1XXA Overexertion from prolonged static or awkward postures, initial encounter
CPT/HCPCS: 96372; 99281; J1885

== ENCOUNTER 2021-01-07 13:23 | Emergency (ER) | payer MEDICAID ==
[2021-01-07 14:19] LABS: #Basophils 0.1 thou/uL (0.0-0.2); #Eosinphils 0.4 thou/uL (0.0-0.7); #Lymphocytes 4.6 thou/uL (1.20-3.40); #Monocytes 0.6 thou/uL (0.11-0.59); #Neutrophils 8.5 thou/uL (1.40-6.50); %Basophils 0.6 % (0.0-1.0); %Eosinophils 2.8 % (0.0-10.0); %Lymphocytes 32.5 % (21.0-51.0); %Neutrophils 60.1 % (42.0-75.0); Hemoglobin 15.2 g/dL (12.0-16.0); Mean Corpuscular HGB CONC 34.1 g/dL (32.0-36.0); Mean Corpuscular Hemoglobin 31.2 pg (27.0-31.0); Mean Corpuscular Volume 91.6 fL (78.0-98.0); Mean Platelet Volume 7.4 fL (7.4-10.4); Platelet Count 296 thou/uL (130-400); RBC Distribution Width 11.9 % (11.5-14.5); Red Blood Cell (RBC) Count 4.86 mill/uL (4.20-5.40); White Blood Cell (WBC) Count 14.1 thou/uL (4.8-10.8)
[2021-01-07 14:50] LABS: ALT (SGPT) 32 U/L (8-55); AST (SGOT) 21 U/L (5-34); Albumin 4.1 g/dL (3.5-5.0); Alkaline Phosphatase 92 U/L (40-110); Anion Gap 12 mmol/L (10-20); BUN (Urea Nitrogen) 9 mg/dL (7.0-18.7); Bilirubin, Total 0.6 mg/dL (0.2-1.2); Calc. Creatinine Clearance 0 mL/min (70-130); Calcium 9.4 mg/dL (7.8-10.44); Carbon Dioxide 26 mmol/L (22-29); Chloride 106 mmol/L (98-107); Globulin 2.8 g/dL (2.4-3.5); Glucose 102 mg/dL (70-105); Potassium 3.9 mmol/L (3.5-5.1); Protein, Total 6.9 g/dL (6.0-8.3); Sodium 140 mmol/L (136-145)
[2021-01-07] MEDS ORDERED: Ketorolac Tromethamine 30 MG/ML VIAL ONE (15:44)
== END 2021-01-07 15:56 | disposition home or self-care (01) ==
LOC: ERS 13:23
DX: M79.605 Pain in left leg (principal); J45.909 Unspecified asthma, uncomplicated; F17.210 Nicotine dependence, cigarettes, uncomplicated
CPT/HCPCS: 36415; 80053; 85025; 85652; 86140; 96372; J1885

== ENCOUNTER 2021-05-24 00:12 | Emergency (ER) | payer MEDICAID | END 2021-05-24 00:33 | disposition left against medical advice (07) | LOC: ERS 00:12 | DX: Z53.21 Procedure and treatment not carried out due to patient leaving prior to being seen by health care provider (principal) ==

== ENCOUNTER 2024-06-14 11:40 | Emergency (ER) | payer SELFPAY ==
[2024-06-14 14:26] LABS: BHCG - Serum Negative (NEGATIVE); Pregs Control Background? CLEAR/WHITE (CLR/WHITE); Pregs Control Bar Appear? YES (CONTROL BAR)
[2024-06-14 14:28] LABS: #Basophils 0.05 10x3/uL (0.0-0.2); %Basophils 0.3 % (0.0-1.0); %Eosinophils 0.4 % (0.0-10.0); %Lymphocytes 12.3 % (21.0-51.0); %Monocytes 4.2 % (0.0-10.0); %Neutrophils 82.4 % (42.0-75.0); Hematocrit 43.1 % (36.0-47.0); Hemoglobin 14.2 g/dL (12.0-16.0); Mean Corpuscular HGB CONC 32.9 g/dL (32.0-36.0); Mean Corpuscular Hemoglobin 30.3 pg (27.0-31.0); Mean Corpuscular Volume 92.1 fL (78.0-98.0); Mean Platelet Volume 9.7 fL (7.4-10.4); Platelet Count 246 10x3/uL (130-400); RBC Distribution Width 12.6 % (11.5-14.5); Red Blood Cell (RBC) Count 4.68 mill/uL (4.20-5.40)
[2024-06-14 14:36] LABS: ALT (SGPT) 41 U/L (8-55); AST (SGOT) 21 U/L (5-34); Albumin 3.6 g/dL (3.5-5.0); Alkaline Phosphatase 92 U/L (40-110); Anion Gap 13 mmol/L (10-20); BUN (Urea Nitrogen) 10 mg/dL (7.0-18.7); Bilirubin, Total 0.8 mg/dL (0.2-1.2); Calc. Creatinine Clearance 0 mL/min (70-130); Carbon Dioxide 24 mmol/L (22-29); Chloride 104 mmol/L (98-107); Estimated GFR 121; Globulin 3.4 g/dL (2.4-3.5); Glucose 128 mg/dL (70-105); Potassium 3.8 mmol/L (3.5-5.1); Sodium 137 mmol/L (136-145)
[2024-06-14] MEDS ORDERED: Aspirin Chewable 81 MG TAB ONE (15:30)
[2024-06-14 16:15] LABS: Troponin I 0.013 ng/mL (< 0.028)
[2024-06-14] MEDS ORDERED: Sodium Chloride 0.9% 100 ML ONE (16:38)
[2024-06-14] MEDS ORDERED: Cefepime 2 GM VIAL ONE (16:38)
== END 2024-06-14 18:08 | disposition home or self-care (01) ==
LOC: ERS 11:40
DX: L03.116 Cellulitis of left lower limb (principal); F41.8 Other specified anxiety disorders; F41.1 Generalized anxiety disorder; R73.03 Prediabetes; Z55.0 Illiteracy and low-level literacy
CPT/HCPCS: 36415; 71045; 80053; 83605; 84484; 84703; 85025; 87040; 93005; 96365; J0692